=== PATIENT | female | born 1980 | race Caucasian/White ===

== ENCOUNTER 2021-12-01 08:36 | Outpatient (CLI) | payer MEDICARE, SELFPAY ==
--- NOTE | ~2021-12-01 | MM_ITS ---
EXAMINATION: MM screening mima BI w bartolo HISTORY: Screening TECHNIQUE: Craniocaudal and mediolateral oblique 3-D tomosynthesis images were obtained and synthetic 2-D images were generated. CAD analysis was submitted and interpreted. COMPARISON: No prior mammogram is available for comparison at this institution. BREAST PARENCHYMAL COMPOSITION: There are scattered areas of fibroglandular density. FINDINGS: There is no evidence of suspicious mass, calcification, or architectural distortion to sugg est malignancy in either breast. There has been no suspicious interval change. IMPRESSION: 1. No mammographic evidence of malignancy. 2. Recommend routine screening mammography in one year. BI-RADS Category 1: Negative Reviewed, dictated and finalized at location A. R GIFTS OFFICER
== END 2021-12-01 08:37 | disposition home or self-care (01) ==
LOC: ANHIMG 08:38
PROVIDERS: PCP Family Medicine; Visit Provider Obstetrics & Gynecology
DX: Z12.31 Encounter for screening mammogram for malignant neoplasm of breast (principal)
CPT/HCPCS: 77063; 77067

== ENCOUNTER 2022-05-24 20:37 | Emergency (ER) | payer MEDICARE, SELFPAY ==
[2022-05-24 21:06] VITALS: BP 125/79; PULSE 74; RESP 18; TEMP 36.9; O2SAT 96
--- NOTE | 2022-05-24 22:54 | PC.NURSE ---
Patient presented to the triage desk and notified this RN that she no longer wanted to be seen by a provider in the ED. She stated that she would she her PCP in the morning. Patient encouraged to stay but declined.
== END 2022-05-24 22:54 | disposition left against medical advice (07) ==
LOC: ANHED 23:17
PROVIDERS: PCP Family Medicine
DX: R51.9 Headache, unspecified (principal)
CPT/HCPCS: 99199

== ENCOUNTER 2023-09-03 09:38 | Emergency (ER) | payer MEDICARE, SELFPAY ==
[2023-09-03 09:50] VITALS: BP 109/70; PULSE 70; RESP 18; TEMP 36.5; O2SAT 98
[2023-09-03 09:52] VITALS: BP 109/70; PULSE 70; RESP 18; TEMP 36.5; O2SAT 98
--- NOTE | 2023-09-03 10:13 | ED.FEMALEGU ---
HPI - Female Genitourinary General Chief complaint: Urogenital-Female Stated complaint: uti symptoms Time Seen by Provider: 09/03/23 10:00 Source: patient Mode of arrival: ambulatory Limitations: no limitations History of Present Illness HPI Narrative: 43-year-old female Presents with complaint of dysuria, bladder pressure, urgency, decreased output since yesterday. Taking [id number] azo and ibuprofen to treat symptoms. Afebrile. Denies nausea vomiting. All systems reviewed and negative except as noted above. Related Data Home Medications Medication Instructions Recorded Confirmed aripiprazole 5 mg tablet mg 09/03/23 buspirone 5 mg tablet mg 09/03/23 escitalopram oxalate 20 mg tablet mg 09/03/23 gabapentin 400 mg capsule mg 09/03/23 trazodone 100 mg tablet mg 09/03/23 Allergies Allergy/AdvReac Type Severity Reaction Status Date / Time lamotrigine Allergy Severe Unknown Verified 04/19/23 08:10 clindamycin Allergy Unknown Unknown Verified 09/03/23 09:50 diphenhydramine Allergy Unknown Unknown Verified 09/03/23 09:50 Sulfa (Sulfonamide Allergy Unknown Unknown Verified 09/03/23 09:50 Antibiotics) Review of Systems Review of Systems: CONSTITUTIONAL: Denies fever, chills, or sweats. EYES: Denies visual changes, redness, or discharge. ENT: Denies rhinorrhea, congestion, sore throat, or otalgia. CARDIOVASCULAR: Denies chest pain, palpitations, or edema. RESPIRATORY: Denies cough or dyspnea. GASTROINTESTINAL: Denies abdominal pain, nausea, vomiting, or diarrhea. GENITOURINARY: reports dysuria, pelvic pressure, frequency. Denies hematuria. SKIN: Denies rash or itching. MUSCULOSKELETAL: Denies back pain, joint pain, or myalgia. NEUROLOGIC: Denies headache, numbness, or weakness. PSYCHIATRIC: Denies anxiety or depression. All other systems reviewed are negative, except as documented in HPI. [facility] Past Medical History Medical History Anxiety BMI 26.0-26.9,adult BMI 28.0-28.9,adult BMI 30.0-30.9,adult Depression Ectopic Migraine Surgical History Surgical History Previous back surgery January 2019 Family History Family History Father No problems noted. Mother Hypertension Family history of diabetes mellitus in first degree relative Grandparent Family history of malignant neoplasm of breast Sibling No problems noted. Social History Social History Smoking packs per day: 1 Smoking cigarettes per day: 20.0 Years smoked: 30 Smoking pack-years: 30.00 Smoking status: Current every day smoker Tobacco type: cigarettes Second hand tobacco smoke exposure: Yes Alcohol intake: former Drinks per week: 0 Alcohol use details: rarely Substance use: current Substance use type: marijuana Lack of Transportation: No Lack of Food: Never True Current Housing: I Have Housing Concerned About Future Housing: No Difficulty Paying Gas/Electric Bills: No Difficulty Paying for Meds: No Currently Unemployed: No Education: High School Diploma/GED Difficulty w/ Childcare or Family Care: No Living arrangements: with family Occupation/Education: occupation 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 There is no relevant family history pertinent to the presenting complaint. Exam Narrative: GENERAL: This is a well-nourished, well-developed patient, in no apparent distress. HEAD: normocephalic, atraum
== END 2023-09-03 10:08 | disposition home or self-care (01) ==
PROVIDERS: Emergency Provider Nurse Practitioner Family; PCP Family Medicine
DX: N39.0 Urinary tract infection, site not specified (principal); F17.210 Nicotine dependence, cigarettes, uncomplicated; F12.90 Cannabis use, unspecified, uncomplicated
CPT/HCPCS: 81003; 87086; 87088; 99213; G0463

== ENCOUNTER 2023-11-03 08:32 | Emergency (ER) | payer MEDICARE, SELFPAY ==
[2023-11-03 08:41] VITALS: BP 105/73; PULSE 73; RESP 20; TEMP 36.1; O2SAT 100
--- NOTE | 2023-11-03 08:48 | ED.BACK ---
HPI - Back Pain/Injury General Chief Complaint: Back Pain/Injury Stated Complaint: back pain Time Seen by Provider: 11/03/23 08:49 Source: patient Mode of arrival: ambulatory Limitations: no limitations History of Present Illness HPI Narrative: 43-year-old female presents with low back pain for 2 days. Denies injury. Reports history of chronic back pain. 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 States low back is tight with radiation to bilateral hips. Taking ibuprofen and Tylenol without relief pain. Ambulatory with steady gait. No numbness, tingling or weakness to lower extremities. No loss of bowel or bladder. All systems reviewed and negative except as noted above. Related Data Home Medications Medication Instructions Recorded Confirmed aripiprazole 5 mg tablet 5 mg PO HS 09/03/23 11/03/23 buspirone 5 mg tablet 5 mg PO BID 09/03/23 11/03/23 escitalopram oxalate 20 mg tablet 20 mg PO DAILY 09/03/23 11/03/23 gabapentin 400 mg capsule 400 mg PO TID 09/03/23 11/03/23 trazodone 100 mg tablet 100 mg PO DAILY 09/03/23 11/03/23 Allergies Allergy/AdvReac Type Severity Reaction Status Date / Time clindamycin AdvReac Intermediate Gastrointestinal Verified 11/03/23 08:49 Upset lamotrigine AdvReac Intermediate Gastrointestinal Verified 11/03/23 08:49 Upset Sulfa (Sulfonamide AdvReac Intermediate Gastrointestinal Verified 11/03/23 08:49 Antibiotics) Upset diphenhydramine AdvReac Mild Rash Verified 11/03/23 08:49 Review of Systems Review of Systems: CONSTITUTIONAL: Denies fever, chills, or sweats. EYES: Denies visual changes, redness, or discharge. ENT: Denies rhinorrhea, congestion, sore throat, or otalgia. CARDIOVASCULAR: Denies chest pain, palpitations, or edema. RESPIRATORY: Denies cough or dyspnea. GASTROINTESTINAL: Denies abdominal pain, nausea, vomiting, or diarrhea. GENITOURINARY: Denies dysuria or hematuria. SKIN: Denies rash or itching. MUSCULOSKELETAL: Reports low back pain. denies joint pain, or myalgia. NEUROLOGIC: Denies headache, numbness, or weakness. PSYCHIATRIC: Denies anxiety or depression. All other systems reviewed are negative, except as documented in HPI. [facility] Past Medical History Medical History Anxiety BMI 26.0-26.9,adult BMI 28.0-28.9,adult BMI 30.0-30.9,adult Depression Ectopic Migraine Surgical History Surgical History Previous back surgery January 2019 Family History Family History Father No problems noted. Mother Hypertension Family history of diabetes mellitus in first degree relative Grandparent Family history of malignant neoplasm of breast Sibling No problems noted. Social History Social History Smoking packs per day: 1 Smoking cigarettes per day: 20.0 Years smoked: 30 Smoking pack-years: 30.00 Smoking status: Current every day smoker Tobacco type: cigarettes Second hand tobacco smoke exposure: Yes Alcohol intake: former Drinks per week: 0 Alcohol use details: rarely Substance use: current Substance use type: marijuana Lack of Transportation: No Lack of Food: Never True Current Housing: I Have Housing Concerned About Future Housing: No Difficulty Paying Gas/Electric Bills: No Difficulty Paying for Meds: No Currently Unemployed: No Education: High School Diploma/GED Difficulty w/ Childcare or Family Care: No Living arrangements: with family Occupation/Education: occupation 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
== END 2023-11-03 08:58 | disposition home or self-care (01) ==
PROVIDERS: Emergency Provider Nurse Practitioner Family; PCP Family Medicine
DX: S39.012A Strain of muscle, fascia and tendon of lower back, initial encounter (principal); X58.XXXA Exposure to other specified factors, initial encounter; Y99.0 Civilian activity done for income or pay; F17.210 Nicotine dependence, cigarettes, uncomplicated; F12.90 Cannabis use, unspecified, uncomplicated; F41.9 Anxiety disorder, unspecified; F32.A Depression, unspecified
CPT/HCPCS: 99212; G0463

== ENCOUNTER 2024-05-20 16:12 | Outpatient (CLI) | payer MEDICARE, SELFPAY ==
--- NOTE | ~2024-05-20 | XR_ITS ---
EXAM: XR lumbar spine 2-3V DATE: 05/20/2024 16:29 HISTORY: LOW BACK PAIN X 5 YEARS; NO INJURY . COMPARISON: 09/19/2018. FINDINGS: 5 nonrib-bearing lumbar-type vertebral bodies. Pedicles intact. Normal vertebral body alig nment. Vertebral body heights preserved. Severe disc space narrowing, vacuum phenomenon, and moderate marginal osteophytosis at L4-5. Mild disc space narrowing and marginal osteophytosis at L5-S1. Mild L3-4 and L4-5 and moderate L5-S1 facet sclerosis and hypertrophy. No fracture or dislocation. IMPRESSION: Lower lumbar degenerative disc disease, severe at L4-5. Multilevel lower lumbar facet art hropathy. Reviewed, dictated and finalized at location K. IMPRESSION: Lower lumbar degenerative disc disease, severe at L4-5. Multilevel lower lumbar facet arthropathy.
== END 2024-05-20 16:13 | disposition home or self-care (01) ==
PROVIDERS: PCP Family Medicine; Visit Provider Nurse Practitioner Adult Health
DX: M51.36 Other intervertebral disc degeneration, lumbar region (principal); M47.896 Other spondylosis, lumbar region
CPT/HCPCS: 72100

== ENCOUNTER 2024-09-06 09:18 | Outpatient (CLI) | payer OTHER, MEDICARE, SELFPAY ==
--- NOTE | ~2024-09-06 | US_ITS ---
EXAMINATION: US renal BI DATE: 09/06/2024 10:20 INDICATION: Incontinence. Pelvic and perineal pain. TECHNIQUE: Multiple ultrasound grayscale images of the kidneys were obtained. COMPARISON: None. FINDINGS: The right kidney measures 11.2 x 4.7 x 5.2 cm. The left kidney measures 10.6 x 5.3 x 5.3 cm. The kidn eys demonstrate normal echogenicity. There is no hydronephrosis in either kidney. No stones identifi ed. The bladder is normal. IMPRESSION: 1. Normal kidneys without hydronephrosis. Reviewed, dictated and finalized at location A.
== END 2024-09-06 09:19 | disposition home or self-care (01) ==
LOC: ANHIMG 09:25
PROVIDERS: PCP Family Medicine; Visit Provider Nurse Practitioner Adult Health
DX: R10.2 Pelvic and perineal pain (principal); N39.41 Urge incontinence
CPT/HCPCS: 76775

== ENCOUNTER 2025-02-03 12:25 | Outpatient (CLI) | payer MEDICARE, SELFPAY ==
--- NOTE | 2025-02-03 12:30 | ECG_ITS ---
Test Date: 2025-02-03 12:54:27 Measurements Intervals [place] Rate: 100 P: 64 OK: 141 QRS: 30 QRSD: 90 T: 44 QT: 355 QTc: 459 Interpretive Statements SINUS TACHYCARDIA LOW QRS VOLTAGE IN PRECORDIAL LEADS [QRS DEFLECTION < 1.0 mV IN CHEST LEADS] WARNING: DATA QUALITY MAY AFFECT INTERPRETATION No previous ECG available for comparison Electronically Signed On 02-04-2025 16:36:58 CDT by Robert Javier M.D.
--- OUTSIDE RECORDS SUMMARY | 2025-02-03 14:46 | XMS_ITS ---
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 feelings related to the stressful experience?: 1 = A little bit 7 Avoiding external reminder s of the stressful experience (for example, people, places, conversations, activities, objects, or situations)?: 0 = Not at all 8 Trouble remembering import ant parts of the stressful experience?: 0 = Not at all 9 Having strong negative bel iefs about yourself, other people, or the world (for example, having thoughts such as: I am bad, there is something seriously wrong with me, no one can be trusted, the world is completely dangerous)?: 0 = Not at all 10 Blaming yourself or someo ne else for the stressful experience or what happened after it?: 2 = Moderately 11 Having strong negative fe elings such as fear, horror, anger, guilt, or shame?: 0 = Not at all 12 Loss of interest in activities that y ou used to enjoy?: 2 = Moderately 13 Feeling distant or cut off from other people?: 2 = Moderately 14 Trouble experiencing posi tive feelings (for example, being unable to feel happiness or have loving feelings for people close to you)?: 3 = Quite a bit 15 Irritable behavior, angry outbursts, or acting aggressively?: 0 = Not at all 16 Taking too many risks or doing things that could cause you harm?: 0 = Not at all 17 Being superalert or watchful or on guard?: 0 = Not at all 18 Feeling jumpy or easily startled?: 1 = A little bit 19 Having difficulty concentrating?: 3 = Quite a bit 20 Trouble falling or staying asleep?: 3 = Quite a bit Total Score 25 Interpretation Scores lower than 31 -33 may indicate the patient either has subthreshold symptoms of PTSD or does not meet criteria for PTSD,: Yes Examination Category Sub-Category Detail Notes Category Not es General Examination Mental Status Examination: Patient exhibits symptoms of depression and anxiety, reporting increased apathy and lack of motivation. Describes feeling on edge, with difficulty experiencing happiness, and functioning on a day-to-day basis primarily to fulfill obligations. Reports increased work hours, including 10-12 hour shifts, leading to physical exhaustion, with no significant improvement in mood. Patient also reports symptoms suggestive of ADHD, including distractibility, difficulty organizing, and misplacing items. Experiences anxiety related to deviations from routine or expectations, particularly when unable to maintain order due to depressive symptoms. Patient continues to experience moderate PTSD symptoms, including flashbacks, avoidance behaviors, and heightened anxiety in response to reminders of past trauma, with almost full panic attacks occurring twice in the last week. Reports waking up several times a night due to disturbing dreams, contributing to fatigue. Vital Signs: review the notes for vitals Physical Examination: Patient appears tired but is cooperative and oriented. Reports symptoms consistent with anxiety and depressive disorders, including lack of motivation and apathy. Symptoms of depression, anxiety, possible ADHD, and PTSD are noted. Diagnostic Test Results and Labs: No relevant diagnostic test results or labs mentioned in the provided text.
--- OUTSIDE RECORDS SUMMARY | 2025-02-03 14:47 | XMS_ITS | Encounter Summary ---
Author Organization [facility] Healthcare Address [address] [place] [address] Care Team Providers Care Fur Matcher Name Role Phone Hamlet Dougherty MD Primary Care Provider [phone] Encounter Details Date Type Department Care Team (Late st Contact Info) Description 10/24/2020 Therapy [facility] [address] [place] [address] Estrada Coffman MD [address] [facility] [address] [place] [address] Severe episode of recurrent major depressive disorder, without psychotic features (HCC) (Primary Dx) Social History Tobacco Use Types Packs/Day Years Used Date Smoking Tobacco: Every Day Cigarettes 1 29.2 Started: 1995 Smokeless Tobacco: Never Alcohol Use Standard Drinks/Week Comments Yes 0 (1 standard drink = 0.6 oz pur e alcohol) RARE Comments No Sex and Gender Information Value Date Recorded Sex Assigned at Not on file Legal Sex Female 7:59 AM CDT Gender Identity Not on file Sexual Orientation Not on file documented as of this encounter Plan of Treatment Not on file documented as of this encounter Visit Diagnoses Diagnosis Severe episode of recurrent major depressive disorder, without psychotic features (HCC)- Primary documented in this encounter Care Teams Fur Matcher Relationship Specialty Start Date End Date Hamlet Dougherty MD PCP - General Family Medicine 11/15/18 documented as of this encounter
--- OUTSIDE RECORDS SUMMARY | 2025-02-03 14:47 | XMS_ITS | Clinical Summary ---
Author Organization [facility] Address [address] [place] [id number] Care Team Providers Care Manual Tester Name Role Phone Hamlet Dougherty MD Primary Care Provider [phone] Allergies Active Allergy Reactions Criticality Noted Date Comments Diphenhydramine Rash Medium 01/30/2019 Clindamycin Diarrhea,Stomach upset Low 01/30/2019 Lamotrigine Rash,Other (See comments) Medium 01/30/2019 PEELING SKIN Morphine Dizziness,Nausea & Vomiting Low 01/30/2019 Sulfa (Sulfonamide Antibiotics) Diarrhea,Stomach upset Low 01/30/2019 Midazolam Dizziness,Nausea & Vomiting Low 01/30/2019 Sertraline Other (See comments) Low 01/30/2019 INDUCES MAJOR DEPRESSION Medications ergocalciferol (VITAMIN D) 50,000 unit capsuleIndicati ons:Vitamin D Deficiency,take n on Saturdays Take 50,000 Units by mouth once a week 1 8 Active ARIPiprazole (ABILIFY) 2 mg tabletIndicatio ns:Depression Treatment Adjunct Take 2 mg by mouth nightly Active mirtazapine (REMERON) 30 mg tabletIndicatio ns:major depressive disorder Take 15 mg by mouth nightly Active ALPRAZolam (XANAX) 0.5 mg tablet Take 0.5 mg by mouth 2 (two) times a day Active escitalopram (LEXAPRO) 20 mg tablet Take 20 mg by mouth daily 1 Active Spravato 56 mg (28 mg x 2) spray,non-aeros ol As directed 1 Active Spravato 84 mg (28 mg x 3) spray,non-aeros ol Administer 84 mg into one nostril every 30 (thirty) days Active Active Problems Problem Noted Date Diagnosed Date Episode of recurrent major depressive disorder 1 Lumbar disc herniation 01/22/2019 Overview (01/22/2019): Added automatically from request for surgery [id number] Spinal stenosis of lumbar region 01/18/2019 Immunizations Immunization Administration Dates Next Due Tdap 2023 Surgical History Surgery Date Site/Laterality Comments MICRODISCECTOMY LUMBAR 01/18/2019 - 02/17/2019 OTHER SURGICAL HISTORY ECT SALPINGECTOMY Medical History Medical History Date Comments Lumbar disc herniation with radiculopathy Lumbar stenosis Lumbar stenosis without neurogenic claudication Cauda equina syndrome (HCC) diana y PONV (postoperative nausea and vomiting) Delayed emergence from general anesthesia pt denies Episode of recurrent major depressive disorder 1 Family History Medical History Relation Name Comments AVR Father Heart attack Mother Anesthesia problems Neg Hx Relation Name Status Comments Father Mother Social History Tobacco Use Types Packs/Day Years Used Date Smoking Tobacco: Every Day Cigarettes 1 29.2 Started: 1995 Smokeless Tobacco: Never Alcohol Use Standard Drinks/Week Comments Yes 0 (1 standard drink = 0.6 oz pur e alcohol) monthly or less Personal Safety Answer Date Recorded Have you ever been in or are you currently in a harmful physical or emotional relationship or is someone making you feel afraid or unsafe? Denies 2023 Comments No Sex and Gender Information Value Date Recorded Sex Assigned at Not on file Legal Sex Female 7:59 AM CDT Gender Identity Not on file Sexual Orientation Not on file Obstetrics History Last Filed Vital Signs Vital Sign Reading Time Taken Comments Blood Pressure 121/77 2023 3:20 PM CDT Pulse 80 2023 3:20 PM CDT Temperature 36.8 C (98.2 F) 2023 3:20 PM CDT Respiratory Rate 18 2023 3:20 PM CDT Oxygen Saturation 99% 2023 3:20 PM CDT Inhaled Oxygen Concentration - - Weight 69 kg (152 lb 1.9 oz) 2023 3:20 PM CDT Height 157.5 cm (5' 2 ) 2023 3:20 PM CDT Body Mass Index 27.82 2023 3:20 PM CDT Plan of Treatment Health Maintenance Due Date Last Done Comments Breast Cancer Screening-Mammogram 1980 Cervical Cancer Screening 1980 Colon Cancer Screening-Colonoscopy 1980 Depression Screening 1978 Hepatitis B Screening 1996 Regular Well Visit/Exam 18-64 1996 Pneumococcal vaccine <65 (1 of 2 - PCV) 1997 Covid-19 Vaccine (3 - 2023-2 5 season) 2024 10/18/2021, 09/27/2021 Influenza Vaccine (#1) 2024 DTaP/Tdap/Td Vaccine (3 - Td or Tdap) 2033 2023, 04/01/2021 Hepatitis C Screening Completed 02/12/2019 , 02/12/2019, 02/12/2019 HPV Vaccines Aged Out No longer eligi ble based on patient's age to complete this topic Procedures Procedure Name Priority Date/Time Associated Diagnosis Comments HEPATITIS PANEL, ACUTE Routine 02/12/2019 8:09 PM CDT from Last 3 Months or Most Recently Relevant to Health Maintenance Results * Hepatitis panel, acute (02/12/2019 8:09 PM CDT) Hep A IgM Nonreactive Nonreactive [facility] Comment: Interpretive Data If test is reported as GRAYZONE, new sample should be drawn in two weeks for testing. Current interpretive data was last revised on 2016. Hep B core IgM Nonreactive Nonreactive [facility] Comment: Interpretive Data If test is reported as GRAYZONE, new sample should be drawn for testing. Current interpretive data was last revised on 2016. Hep C Ab Nonreactive Nonreactive [facility] Comment: Interpretive Data Positive results should be confirmed by a molecular method. If positive, a second separately collected sample should be submitted for Hepatitis C Virus (HCV) RNA Detection and Quantitation by Real-Time Reverse Fertilizer Applicator-PCR (RT-PCR). Current interpretive data was last revised on 2016. HepBsAg Nonreactive Nonreactive [facility] Blood specimen (specimen) 02/12/2019 8:09 PM CDT 02/12/2019 8:50 PM CDT Narrative [facility] - 02/13/2019 11:45 AM CDT Caridad Ramey MD LAB MICROBIOLOGY - GENERAL O RDERABLES Edited Result - Final [facility] Department [place] [address] from Last 3 Months or Most Recently Relevant to Health Maintenance [facility]POS [facility] HMO [employer]ARE HMO Advance Directives For more information, please contact: [phone] Documents on File Type Date Recorded Patient Medical Case Manager Expl anation ADVANCE DIRECTIVE 02/12/2019 11:16 AM * Full Code (Latest Code Status on File) Date Activated Date Inactivated Comments 04/01/2021 6:23 AM 04/02/2021 4:54 AM * Full Code Date Activated Date Inactivated Comments 03/25/2021 5:53 AM 03/26/2021 4:57 AM * Full Code Date Activated Date Inactivated Comments 03/22/2021 6:04 AM 03/23/2021 4:59 AM * Full Code Date Activated Date Inactivated Comments 03/18/2021 6:06 AM 03/19/2021 5:04 AM * Full Code Date Activated Date Inactivated Comments 03/15/2021 6:08 AM 03/16/2021 4:56 AM Care Teams Manual Tester Relationship Specialty Start Date End Date Hamlet Dougherty MD PCP - General Family Medicine 11/15/18
--- OUTSIDE RECORDS SUMMARY | 2025-02-03 14:47 | XMS_ITS ---
Author Organization [facility] [employer] [facility] Address [address] [place] [address] [address] [facility] [address] [place] [address] Care Team Providers Care Plant Biology Professor Name Role Phone Ladonna LEO, Hamlet Primary Care Provider UnavailDonald Horner Unavailable [phone] Social History Sex Assigned At : Social History Observation Description Sex Assigned At Female Encounters Encounter Location Date Provider Diagnosis [facility] [address] [address] 01/21/2025 Donald Kc Plan Of Treatment Next Appt Details Provider Name:Donald Kc , 02/10/2025 02:00:00 PM, [address] [place] [address], [address], [address], Provider Name:Donald Kc , 03/03/2025 01:30:00 PM, [address] [place] [address], [address], [address], Progress Notes * STORM MELARA LDOB:1980 (44 yo F)Acc No.[id number]:01/21/2025 Patient: BRODY MAIERJENNA Dorman :1980 A ge:44 Y S ex:Female Address:[address] [place] [address], [id number] * * Date:
--- OUTSIDE RECORDS SUMMARY | 2025-02-03 14:47 | XMS_ITS | Data Portability ---
Author Organization [facility] Address [address] [place] [address] Care Team Providers Care Configuration Management Analyst Name Role Phone UMA MORA Primary Care Provider [phone] Assessment Encounter Date Assessment Date Assessment LastModified by Organization Details LastModified Time 09/30/2024 09/30/2024 Annual gynecological exam performed. Patient will come back in a year unless there are new symptoms. Not available 09/30/2024 14:28:32 Plan of Treatment Reminders Order Date Submit Date Provider Last Modified By Organization Details Last Modified Time Details Appointments SURG Salpingec quiana 2024 10:00A Jose Antonio STALEY MD Not available Not available Not available SURG POST OP 2024 01:15P Jose Antonio STALEY MD Not available Not available Not available Lab None recorded. Referral None recorded. Procedures None recorded. Surgeries laparosco pic ovarian cystectom y (SURG) [address], [facility] [address], [address], 01/03/2025 17:00:43 salpingec quiana, laparosco pic (SURG) [address], [facility] [address], [address], 12/25/2024 09:55:22 hysterosc opy, with endometri al ablation (SURG) [address], [address] [place] [address], [address], 12/25/2024 09:55:05 Imaging US, pelvis 2024 025 [email or web address] [place] [facility] [address], [place], [address], 12/02/2024 18:54:09 US, transvagi nal 2024 025 [email or web address] [place], [place], [address], 12/02/2024 18:54:09 US, pelvis 2023 024 [email or web address] [place] [address], [place], [address], 10/07/2024 19:44:28 US, transvagi nal 2023 024 [email or web address] [place], [address], [place], [address], 10/07/2024 19:44:28 Medication Orders None recorded. Patient TargetsNo targets recorded. Patient InstructionsNo instructions recorded. Reason for Referral None Reported. Results Created Date Observation Date Name Description Value Unit Range Abnormal Flag Note LastModifiedBy Organization Detail LastModifiedTime 10/07/20 24 10/07/2024 , joshua newberry No observ ation record ed. [email or web address] [place] [address], [place], [address], 10/07/2024 18:05:03 10/07/20 24 10/07/2024 US, trans vagin al No observ ation record ed. [email or web address] [place] [address], [place], [address], 10/07/2024 18:05:12 10/07/20 24 10/07/2024 US, pelvi s No observ ation record ed. [email or web address] [address] [address], [place], [address], 10/07/2024 19:49:03 12/02/19 25 12/02/2024 US, pelvi s No observ ation record ed. [facility] [address], [place], [address], 12/02/2024 18:03:42 12/02/19 25 12/02/2024 US, trans vagin al No observ ation record ed. [facility] [address], [place], [address], 12/02/2024 18:03:53 12/02/19 25 12/02/2024 US, pelvi s No observ ation record ed. [address], [place], [address], 12/03/2024 15:35:15 Result Notes None recorded. Procedures Surgical History Date Name Laterality Status Provider Name and Address Organization Details Recorded Time 4 Date of Last Pap Smear completed [facility] 10/28/2024 14:35:26 2 Date of Last Mammogram completed [facility] 09/30/2024 14:30:21 9 procedure on back completed [facility] 09/30/2024 14:36:31 4 fallopian tube excision completed [facility] 09/30/2024 14:36:08 Imaging Results Imaging Date Name Status LastModified by Organization Details LastModified Time 10/07/2024 US, pelvis completed [email or web address] [place] [address], [place], [address], 10/07/2024 18:05:03 10/07/2024 US, transvaginal completed [email or web address] [place] [address], [place], [address], 10/07/2024 18:05:12 10/07/2024 US, pelvis completed [email or web address] [address], [place], [address], 10/07/2024 19:49:03 12/02/2024 US, pelvis completed [email or web address] [place] [address], [place], [address], 12/02/2024 18:03:42 12/02/2024 US, transvaginal completed [email or web address] [place] [address], [place], [address], 12/02/2024 18:03:53 12/02/2024 US, pelvis completed [address], [place], [address], 12/03/2024 15:35:15 Procedure Notes None recorded. Medical Equipment None Reported. Allergies Allergen ID Allergen Name Allergen Category Reaction Reaction Severity Criticality Documentation Date Start Date Code Code System Note Provider Name and Address Organization Details Recorded Time 20983 dexbromph eniramine / pseudoeph edrine medicatio n rash moderate Not available 09/30/2024 48752 4 RxNorm Claudia Whitman [facility] 14:30:04 Medications Name Sig Start Date Stop Date Status Note LastModified by Organization Details LastModified Time cyclobenzap rine 10 mg tablet TAKE 1 TABLET (10 MG) ORALLY THREE TIMES A DAY NEEDED FOR MUSCLE SPASM active Not Available Not Available No t Available amoxicillin 500 mg capsule TAKE 1 CAPSULE BY MOUTH EVERY 8 HOURS 09/30 completed Not Available Not Available Not Available buspirone 5 mg tablet TAKE 1 TABLET BY MOUTH THREE TIMES A DAY FOR 30 DAYS active Not Available Not Available No t Available prednisone 10 mg tablet 10 MG ORALLY THREE TIMES A DAY 3 TABLETS A DAY FOR 5 DAYS. 09/30 completed Not Available Not Available Not Available doxycycline hyclate 100 mg capsule TAKE 2 ON DAY 1, THEN TAKE 1 EVERY DAY 09/30 completed Not Available Not Available Not Available gabapentin 400 mg capsule TAKE 1 CAPSULE BY MOUTH THREE TIMES A DAY active Not Available Not Available No t Available meloxicam 7.5 mg tablet TAKE 1 TABLET BY MOUTH EVERY DAY active Not Available Not Available No t Available trazodone 100 mg tablet TAKE 1/2 TAB TABLET BY MOUTH EVERYDAY AT BEDTIME 09/30 completed Not Available Not Available Not Available nitrofurant oin macrocrysta l 100 mg capsule 100 MG ORALLY EVERY 12 HOURS MUST ADMINISTE R WITH A MEAL/FOOD 09/30 completed Not Available Not Available Not Available escitalopra m 20 mg tablet TAKE 1 TABLET BY MOUTH EVERY DAY FOR 90 DAYS active Not Available Not Available No t Available aripiprazol e 5 mg tablet TAKE 1 TABLET BY MOUTH EVERY DAY FOR 90 DAYS active Not Available Not Available No t Available cyclobenzap rine 09/30 completed Not Available Not Available Not Available gabapentin 09/30 completed Not Available Not Available Not Available Uro-MP 118 mg-10 mg-40.8 mg-36 mg capsule TAKE 1 CAPSULE BY MOUTH FOUR TIMES A DAY. TAKE WITH PLENTY OF FLUIDS active Not Available Not Available No t Available meloxicam submicroniz ed 10 mg capsule 09/30 completed Not Available Not Available Not Available Acid Teletype Operator (omeprazole ) 09/30 completed Not Available Not Available Not Available Gemtesa 75 mg tablet TAKE 1 TABLET BY MOUTH EVERY DAY active Not Available Not Available No t Available Vitals Date Recorded Body height Body mass index (BMI) Body weight Systolic blood pressure Diastolic blood pressure Provider Name and Address Organization Details Last Updated DateTime 09/30/2024 157.48 cm 30.9 kg/m2 72196.11 g 120 mm[Hg] 55 mm[Hg] Claudia Whitman [facility] 4 14:29:58 Date Recorded Body height Body mass index (BMI) Body weight Systolic blood pressure Diastolic blood pressure Provider Name and Address Organization Details Last Updated DateTime 10/28/2024 157.48 cm 30.7 kg/m2 75636.52 g 112 mm[Hg] 77 mm[Hg] Claudia Whitman [facility] 4 14:34:47 Date Recorded Body height Body mass index (BMI) Body weight Systolic blood pressure Diastolic blood pressure Provider Name and Address Organization Details Last Updated DateTime 12/20/2024 157.48 cm 30.5 kg/m2 98385.93 g 120 mm[Hg] 82 mm[Hg] Claudia Whitman [facility] 5 10:08:27 Social History Question Answer Notes LastModified by Organizat ion Details LastModified Time Do You Have An Advance Directive? No Information n ot available 09/30/2024 What Is Your Level Of Alcohol Consumption? None Information not available 09/30/2024 How Many Years Have You Consumed Alcohol? 33 Information not available 09/30/2024 Are You Blind Or Do You Have Difficulty Seeing? No Information not available 09/30/2024 What Is Your Level Of Caffeine Consumption? Moderate Information not available 09/30/2024 How Much Tobacco Do You Chew? None Information not available 09/30/2024 In The 14 Days Before Symptom Onset, Have You Had Close Contact With A Laboratory-confirme d COVID-19 While That Case Was Ill? No Information n ot available 09/30/2024 In The 14 Days Before Symptom Onset, Have You Had Close Contact With A Person Who Is Under Investigation For COVID-19 While That Person Was Ill? No Information not available 09/30/2024 Have You Been To An Area Known To Be High Risk For COVID-19? No Information not available 09/30/2024 Are You Deaf Or Do You Have Serious Difficulty Hearing? No Information not available 09/30/2024 What Type Of Diet Are You Following? REGULAR Information n ot available 09/30/2024 What Is The Highest Grade Or Level Of School You Have Completed Or The Highest Degree You Have Received? 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 No Information not available 09/30/2024 Do You Use Protection During Sex? No Information not available 09/30/2024 Do You Use Your Seat Belt Or Car Seat Routinely? Yes Information not available 09/30/2024 Do You Have Smoke And Carbon Monoxide Detectors In Your Home? Yes Information not available 09/30/2024 At What Age Did You Start Smoking Tobacco? 11 Information not available 09/30/2024 How Much Tobacco Do You Smoke? 1 PPD Information not available 09/30/2024 Do You Feel Stressed (tense, Restless, Nervous, Or Anxious, Or Unable To Sleep At Night)? [id number] Information not available 09/30/2024 Do You Use Any Illicit Or Recreational Drugs? Yes Information not available 09/30/2024 Do You Use Sunscreen Routinely? No Information not available 09/30/2024 How Many Years Have You Smoked Tobacco? 33 Information not available 09/30/2024 Have You Used IV Drugs? No Information not available 09/30/2024 Sex: Unknown Functional Status Question Answer Note LastModified by Organizat ion Details LastModified Time Are you able to walk? YESWOREST Information not available 09/30/2024 What is your exercise level? Occasional Information not available 09/30/2024 Mental Status None recorded. Family History Relationship Description Onset Age of this Age Resolved Age Notes LastModified by Organization Details LastModified Time Mother Depressive disorder Not available 2023 14:30:09 Maternal Grandfather Depressive disorder Not available 2023 14:30:09 Medical History Condition Response Allergies (Food, seasonal, environmental ) N Other N Breast Cancer N Drug/Latex Allergies/Reactions N Blood Transfusion N Lung Disease N Dermatologic Disorders N Defects or Inherited Disease N Breast Problem N Gestational Diabetes N Hematologic disorders N Anesthesia Complications N History of STI N Deep Vein Thrombosis N Polycystic ovary syndrome N Anxiety Disorder Y Autoimmune disease N Arthritis N Polyps N Infertility N History of abnormal pap N Acid Reflux (GERD) N Cancer N Varicosities N Stroke N Neurologic/Epilepsy N Endometriosis N High Cholesterol N Fibromyalgia N Headaches N Kidney Disease N Heart Problems N Kidney or Bladder Problems N Thyroid Problems N GI Problems Y Eating Disorder N Anemia N Art (IVF or FET) N Psychiatric Illness N Ovarian Cancer N Diabetes N Pulmonary (TB, Asthma) N Hepatitis/Liver Disease N No Past Medical History N Eczema N Urinary Tract Infection N Abuse/Domestic Violence N Asthma N Trauma/Violence N Depression/ depression Y Heart Disease N Pre-Eclampsia N Hypertension N Osteoporosis N Thrombophilias N Gynecological History Statement/Question Response Date of Last Mammogram 06/20/2022 Flow Heavy Date of LMP 12/01/2024 N Was last menstrual period normal Y STIs/STDs N None Desired Control Method Ablation Abnormal Pap N On BCP's at Conception? N HPV Vaccine Y Duration of Flow (days) 5 Current Control Method None Age at First Child 21 Are cycles usually normal Y Frequency of Cycle (Q days) 28 Sexually Active? Y Menses Monthly Y Age of first menstrual cycle 10 Date of Last Pap Smear 09/30/2024 Sexual Problems? N LMP Definite N Obstetrics History GPAL:G 2 P 0 0 1 1 Type Value Living 1 Ectopics 1 Total 2 Past Encounters Encounter ID Performer Location Encounter Start Date Encounter Closed Date Diagnosis/Indication Diagnosis SNOMED-CT Code Diagnosis ICD10 Code Diagnosis Note [id number] Venkatesh Staley MD [place] [address] [address] 09/30/2024 14:02:20 09/30/2024 15:02:37 Gynecologic examination 53266339 Z01.419 Annual gynecologi aide exam performed. Patient will come back in a year unless there are new symptoms. Suggest Calcium with Vitamin D if not eating in diet. Patient advised to get annual flu shot. Recommend yearly physicals and preform monthly breast exams. Genetic testing is available for patients with family history of cancer. Engage in safe sexual practices, use condoms. Encouraged to have daily exercise. Avoid tobacco and illicit drugs, moderation of alcohol. If BMI greater than 25 dietary consult advised. If you have any questions please call or email. mammogram- ordered colon cancer screening -na DEXA scan-na Pap smear- today laboratory evaluation - done Severe menorrhagi a-to have pelvic ultrasound and to return [id number] Zulma Tiwari [place] [address] [address] 10/07/2024 16:06:22 10/07/2024 16:43:55 Menorrhagia 475691878 N92.0 [id number] Venkatesh Staley MD [place] [address],[place] [address] 10/28/2024 14:13:39 10/28/2024 15:25:01 Menorrhagia 786526591 N92.0 44-year-ol d female who presents for follow-up on menorrhagi a. She had an ultrasound that was reasonably normal. She does have a polyp within the cervix though. We agreed to follow-up on the polyp on ultrasound . She likewise has a ovarian cyst of 3 cm that will need follow-up. She will have ultrasound in 6 weeks. We talked about menorrhagi a. We talked about its treatment. We talked about medical treatments and surgical treatments . We agreed to a trial of Mirena IUD. She will return for Mirena IUD insertion. I spent more than 20 minutes on her care in total. [id number] [facility] [address],[place] [address] 12/02/2024 11:51:49 12/02/2024 12:36:10 Cyst of left ovary [id number] [id number] N83.292 N84.1 [id number] Venkatesh Staley MD [place] [address],[place] [address] 12/20/2024 09:57:27 12/20/2024 10:55:05 Menorrhagia 682866771 N92.0 this patient is a 44-year-ol d female with severe menorrhagi a. We have talked about treatment previously . Patient would like endometria l ablation. I believe that is the best treatment for her. Given her age and her health. She would need a right salpingect jonna. We talked about ultrasound today. I shared images with her. She has a left ovarian cyst that is mildly complex. We agreed to remove that at the time of the salpingect jonna. The patient understand s the procedure. The procedure was described to the patient in great detail. the patient also understand s the risks. The risks were also explained in detail. She understand s that injuries May occur during surgery. She understand s these injuries can result in hospitaliz ation, more surgery, and severe illness. She understand s there is risk of hemorrhage and infection. spent more than 40 minutes on the patient's care in total. Talked about ovarian cyst, we talked about surgical care. We talked about treatment for menorrhagi a. We discussed risk. We discussed multiple complex topics. Female sterilization 608 70939 Z30.2 Cyst of left ovary 57209 45198 3500251 N83.292 N84.1 Health Concerns Section Related Observation LastModified by Organization Detai ls LastModified Time None Recorded Concern Status LastModified by Organization Details LastModified Time None Recorded Advance Directives Directive N: Payers Encounter Date Sequence Insurance Name Policy Number Policy Martinez Covered Member ID Martinez Member ID Guarantor Name 09/30/2024 1 [employer] (MEDICARE REPLACEMENT /ADVANTAGE - PPO) Lotus Tracy [id number] Lotus Tracy 09/30/2024 1 [employer] [id number] Lotus Tracy [id number] Lotus Tracy 10/07/2024 1 [employer] (MEDICARE REPLACEMENT /ADVANTAGE - PPO) Lotus Tracy [id number] Lotus Tracy 10/07/2024 1 [employer] [id number] Lotus Tracy [id number] Lotus Tracy 10/28/2024 1 [employer] (MEDICARE REPLACEMENT /ADVANTAGE - PPO) Lotus Tracy [id number] Lotus Tracy 10/28/2024 1 [employer] [id number] Lotus Tracy [id number] Lotus Tracy 12/02/2024 1 [employer] (MEDICARE REPLACEMENT /ADVANTAGE - PPO) Lotus Tracy [id number] Lotus Tracy 12/20/2024 1 [employer] (MEDICARE REPLACEMENT /ADVANTAGE - PPO) Lotus Tracy [id number] Lotus Tracy Notes Date Note Type Note Provider Name and Address Organization Details Recorded Time 09/30/2024 text/html Annual GYNReported bypatient.History :no gynecologic complaints Menstrual cycle:Menorrhagia Urinary symptoms:No hematuria Vulva:No genital lesion Vagina:Normal vaginal discharge Breast:No breast pain; No breast lump; No nipple discharge Current Contraception:Bir th control not practiced Sexual complaints:No sexual complaints; No pain during intercourse Menopausal Symptoms:No menopausal symptoms; Normal vaginal lubrication Psychological symptoms:Depressi on;Anxiety; Txed Preventive measures:Encourag e self breast examination; Encourage regular exercise Venkatesh Staley MD [address], [place], [address], [facility] 09/30/2024 15:02:19 10/28/2024 text/html 44-year-old female who presents for follow-up on menorrhagia. She had an ultrasound that was reasonably normal. She does have a polyp within the cervix though. We agreed to follow-up on the polyp on ultrasound. She likewise has a ovarian cyst of 3 cm that will need follow-up. She will have ultrasound in 6 weeks. We talked about menorrhagia. We talked about its treatment. We talked about medical treatments and surgical treatments. We agreed to a trial of Mirena IUD. She will return for Mirena IUD insertion. I spent more than 20 minutes on her care in total. Venkatesh Staley MD [address], [place], [address], [facility] 10/28/2024 15:24:51 12/20/2024 text/html this patient is a 44-year-old female with severe menorrhagia. We have talked about treatment previously. Patient would like endometrial ablation. I believe that is the best treatment for her. Given her age and her health. She would need a right salpingectomy. We talked about ultrasound today. I shared images with her. She has a left ovarian cyst that is mildly complex. We agreed to remove that at the time of the salpingectomy. The patient understands the procedure. The procedure was described to the patient in great detail. the patient also understands the risks. The risks were also explained in detail. She understands that injuries May occur during surgery. She understands these injuries can result in hospitalization, more surgery, and severe illness. She understands there is risk of hemorrhage and infection. Venkatesh Staley MD [address], [place], [address], [facility] 12/20/2024 10:53:13 OBGyn Episode Ob Episode Information Episode Created Date Number of Fetuses Patient Bloodtype Patient rh Status Prepregnancy Weight lbs Domestic Partner Domestic Partner Phone Father Name Process Line Operator Status 09/30/20 24 1 CLOSED Fetus Data First Name Last Name Admitted to NICU Weight (g) Sex Living Outcome Pediatric Complications Fetus ID Race Codes Race Delivery Type Ectopic [id number] Hiram Calculation Initial Hiram Date Initial Exam Date Initial Exam Provider Initial Ultrasound Date Last Menstrual Period Date Ultra Sound Weeks Gestation 0 Eighteen To Twenty Week Hiram Update Ultra Sound Date Fundal Height At Umbil Quickening Date Ultra Sound Latest Weeks Gestation Final Hiram Confirmed By Final Hiram Confirmed Date Final Hiram Date Ultra Sound Latest Days Gestation 0 0 Menstrual History Last Menstrual Date Menses Monthly On Bcp Conception Prior Menses Frequency Hcg Plus Date Menarche Onset Age Delivery Information Delivery Date Delivery Type Labor Anesthesia Weeks Gestation Incision Type Labor Labor Length Hrs Delivered By Post Complications Tubal Sterilization Discharge Date Comments 4 Discharge Information Feeding Method Contraceptive Method Maternal HG B and HCT Levels Ob Episode Information Episode Created Date Number of Fetuses Patient Bloodtype Patient rh Status Prepregnancy Weight lbs Domestic Partner Domestic Partner Phone Father Name Process Line Operator Status 09/30/20 24 1 CLOSED Fetus Data First Name Last Name Admitted to NICU Weight (g) Sex Living Outcome Pediatric Complications Fetus ID Race Codes Race Delivery Type F Full Term [id number] Vaginal Delivery Hiram Calculation Initial Hiram Date Initial Exam Date Initial Exam Provider Initial Ultrasound Date Last Menstrual Period Date Ultra Sound Weeks Gestation 0 Eighteen To Twenty Week Hiram Update Ultra Sound Date Fundal Height At Umbil Quickening Date Ultra Sound Latest Weeks Gestation Final Hiram Confirmed By Final Hiram Confirmed Date Final Hiram Date Ultra Sound Latest Days Gestation 0 0 Menstrual History Last Menstrual Date Menses Monthly On Bcp Conception Prior Menses Frequency Hcg Plus Date Menarche Onset Age Delivery Information Delivery Date Delivery Type Labor Anesthesia Weeks Gestation Incision Type Labor Labor Length Hrs Delivered By Post Complications Tubal Sterilization Discharge Date Comments 1 Discharge Information Feeding Method Contraceptive Method Maternal HG B and HCT Levels
--- OUTSIDE RECORDS SUMMARY | 2025-02-03 14:47 | XMS_ITS | Referral Summary ---
Author Organization [facility] Address [address] [place] [address] Care Team Providers Care Retail Merchandising Coordinator Name Role Phone Hamlet Dougherty MD Primary Care Provider [phone] Allergies Active Allergy Reactions Criticality Noted Date [...] (01/22/2019): Added automatically from request for surgery [id number] Spinal stenosis of lumbar region 01/18/2019 Immunizations Immunization Administration Dates Next Due Tdap 2023 Social History Tobacco Use Types Packs/Day Years [...] on file Sexual Orientation Not on file Last Filed Vital Signs Vital Sign Reading [...] 2023 3:20 PM CDT Plan of Treatment Not on file Procedures Procedure Name Priority Date/Time Associated Diagnosis Comments HEPATITIS PANEL, ACUTE Routine 02/12/2019 8:09 PM CDT from Last 3 Months or Most Recently Relevant to Health Maintenance Results * Hepatitis panel, acute (02/12/2019 8:09 PM CDT) Hep A IgM Nonreactive Nonreactive [facility] Comment: Interpretive Data If test is reported as GRAYZONE, new sample should be drawn in two weeks for testing. Current interpretive data was last revised on 2016. Hep B core IgM Nonreactive Nonreactive [facility] Comment: Interpretive Data If test is reported as GRAYZONE, new sample should be drawn for testing. Current interpretive data was last revised on 2016. Hep C Ab Nonreactive Nonreactive [facility] Comment: Interpretive Data Positive results should be confirmed by a molecular method. If positive, a second separately collected sample should be submitted for Hepatitis C Virus (HCV) RNA Detection and Quantitation by Real-Time Reverse Pattern Molder-PCR (RT-PCR). Current interpretive data was last revised on 2016. HepBsAg Nonreactive Nonreactive [facility] Blood specimen (specimen) 02/12/2019 8:09 PM CDT 02/12/2019 8:50 PM CDT N[facility]ative [facility] - 02/13/2019 11:45 AM CDT Caridad Ramey MD LAB MICROBIOLOGY - GENERAL O RDERABLES Edited Result - Final [facility] Department [place] [address] from Last 3 Months or Most Recently Relevant to Health Maintenance Insurance [facility]/PPO Address: [address] [place] [address] [facility] WELLCARE MEDICARE HMO Advance Directives For more information, please contact: [phone] Documents on File Type Date Recorded Patient Neck Fitter Expl anation ADVANCE DIRECTIVE 02/12/2019 11:16 AM [...] 6:08 AM 03/16/2021 4:56 AM Care Teams Retail Merchandising Coordinator Relationship Specialty Start Date End Date Hamlet Dougherty MD PCP - General Family Medicine 11/15/18
--- OUTSIDE RECORDS SUMMARY | 2025-02-03 14:47 | XMS_ITS ---
Author Organization [facility] As [employer] Address [address] [place] [address] [address] Care Team Providers Care Geriatric Social Worker Name Role Phone Ladonna LEO, Hamlet Primary Care Provider Donald Tran Unavailable [phone] REASON FOR VISIT no show Social History Sex Assigned At : Social History Observation Description Sex Assigned At Female Encounters Encounter Location Date Provider Diagnosis [facility] [address] [address] 01/20/2025 Donald Kc Plan Of Treatment Next Appt Details Provider Name:Donald Kc , 02/10/2025 02:00:00 PM, [address] [place] [address], [address], [address], Provider Name:Donald Kc , 03/03/2025 01:30:00 PM, [address] [place] [address], [address], Progress Notes * STORM MELARA LDOB:1980 (44 yo F)Acc No.[id number]:01/20/2025 Patient: PAYTON MAIERGreg Dorman :1980 A ge:44 Y S ex:Female Address:[address] [place] [address], [phone] * true * Date: Generated for Printi ng/Fareagang/eTransmitting on: 0 02/03/2025 02:47 PM CDT
== END 2025-02-03 12:26 | disposition home or self-care (01) ==
PROVIDERS: PCP Family Medicine; Visit Provider Obstetrics & Gynecology
DX: F17.200 Nicotine dependence, unspecified, uncomplicated (principal); Z01.818 Encounter for other preprocedural examination
CPT/HCPCS: 93005

== ENCOUNTER 2025-02-04 00:14 | Day surgery (SDC) | payer MEDICARE, SELFPAY ==
[2025-02-03 09:37] VITALS: BMI 30.1
--- NOTE | 2025-02-03 09:38 | PC.NURSE ---
Addendum entered by Pita Phillip RN 02/03/25 10:03: Pt notified may take gabapentin, buspirone, and escitalopram morning of surgery with a small sip of water. Original Note: Report to the Outpatient Waiting Room, entrance under the green pavilion located off [facility], at time _8:00am on date _[id number] . Planned Procedure Time: __10:00am .? Time changes happen often and if your time is changed the preop area will call you the afternoon before. - You and your visitor will be asked to self-screen and do not enter if you have any COVID symptoms. Please call surgeon if you need to reschedule. - A mask is optional within the hospital at this time. Patients may have clear liquids (water, carbonated beverages, clear teas, apple juice) until 3 hours prior to surgery with a maximum of 20 ounces. STOP AT 7AM - No food from midnight until time of surgery and no smoking, or chewing tobacco (or any form of nicotine). No chewing gum, candy or mints. DO NOT STOP ANY OF YOUR OTHER PRESCRIPTION MEDICATIONS PRIOR TO SURGERY EXCEPT THE FOLLOWING: N/A Hold all vitamins and supplements for 3 days per anesthesiologist. N/A Medications to discontinue per physician N/A Please no make-up, nail croatian, hairspray, perfume, deodorant, or body powder the day of surgery.? No jewelry (including any body piercings) or valuables the day of surgery, leave them at home.? Please take a shower or bath the night before, or the morning of, surgery with an antibacterial soap.? Wear comfortable, loose fitting clothing.? - Jewelry must be removed prior to entering the operating room.? Rings and piercings that are not removed may be cut off. - The hospital will not accept responsibility for valuables.? - Please leave all valuables, including medications, at home the day of surgery. If you are going home after surgery, a licensed funeral car driver must drive you home.? - NO public transportation without another adult if you receive anesthesia. - We recommend that an adult stay with you for 24 hours following discharge. - We also recommend that you do not drive, make important decision, drink alcoholic beverages, or take any drugs that were not prescribed by your health care provider for at least 24 hours after your discharge time. Follow any additional instructions given to you from your surgeon. Telephone instructions given to __STORM (PATIENT) and asked if any additional questions and then verbalized understanding. Patient advised to call surgeon office or pre surgery nurse liaison [phone] if any additional questions.
[2025-02-04] VITALS (7 sets, daily range): BP systolic 118–133; BP diastolic 52–88; PULSE 70–88; RESP 9–16; TEMP 36.1–36.5; O2SAT 98–100; BMI 30.1
--- OUTSIDE RECORDS SUMMARY | 2025-02-04 00:17 | XMS_ITS ---
Author Organization [facility] As [employer] Address [address] [place] [address] Care Team Providers Care Welding Pantograph Operator Name Role Phone Ladonna LEO, Hamlet Primary Care Provider Unavaila Donald Wagner Unavailable [phone] Allergies Allergen (clinical drug ingredient) Drug/Non Drug [...] MG Oral 02/28/2024 Active Ergocalciferol 1.25 MG (60896 UT) Oral 02/28/2024 Active Meloxicam 7.5 MG [...] W/U Status Risk Notes Problem Poor concentration (59775280) Poor concentration (R41.840) Active confirmed Vital Signs Blood pressure systolic 107 mm Hg 01/21/20 25 Blood pressure diastolic 74 mm Hg 025 Heart Rate 94 /min 01/20/2025 Height 62.00 in 01/20/2025 Weight 166.0 lbs 01/20/2025 BMI 30.36 kg/m2 01/20/2025 Height-cm 157.48 cm 01/20/2025 Weight-kg 75.3 kg 01/20/2025 Encounters Encounter Location Date Provider Diagnosis [facility] [address] [place] [address] 01/20/2025 Donald Hall Major depressive disorder, recurrent [...] Provider Name:Donald Hall , 02/10/2025 02:00:00 PM, [facility] [facility], [address], [address], Provider Name:Donald Hall , 03/03/2025 01:30:00 PM, [facility], [address], [address], Progress Notes * STORM MELARA LDOB:1980 (44 yo F)Acc No.[id number]:01/20/2025 Patient: STORM MAIER Provider: Skyler HALL MD :1980 A ge:44 Y S ex:Female Date:01/20/2025 Address:[address] [place], [place] [id number] Pcp:Hamlet Dougherty MD Subjective: * Chief Complaints: [...] P ositve F ollow-Up for Depression [facility] treatment assessment, Patient follow-up to return [...] es D o you have Power of Police Commanding Officer for Health or Medical? N o * Medications: T akingMeloxicam 7.5 MG Tablet 1 tablet Orally Once a day Ergocalciferol 1.25 MG (17906 UT) Capsule Oral Pantoprazole Sodium 40 MG [...] Once a day Taking Ergocalciferol 1.25 MG (03819 UT) Capsule Oral Taking Pantoprazole Sodium 40 [...] 9902 Pt scrn tbco and id as [id number] BEHAV ASSMT W/SCORE & DOCD/STAND [id number] CLIN DEPRESSION SCREEN DOC * Preventive Medicine: [...] Weeks * Billing Information: * Visit Code: 48348 OFFICE OUTPATIENT VISIT 25 MINUTES DETAILED HISTORY AND EXAM/MODERATE MEDICAL DECISION MAKING. * Procedure Codes: G9902 Pt scrn tbco and id as user. [id number] BEHAV ASSMT W/SCORE & DOCD/STAND INSTRUMENT. G8431 CLIN DEPRESSION SCREEN DOC. * ICIDE APPLICATOR Sign off status: Completed true * Provider: Skyler HALL MD Date: 0 01/20/2025 Generated for Printi ng/Fareagang/eTransmitting on: 0 02/04/2025 12:16 AM CDT History and Physical Notes * HPI [...] Screening Findings: P ositve Follow-Up for Depression: [facility] treatment assessment, Patient follow-up to return when [...] Interpretation of Total: (5 to 9) Mild [place]-Suicide Severity Rating Scale Suicide Risk (CSRS-screener) in [...]
--- OUTSIDE RECORDS SUMMARY | 2025-02-04 00:18 | XMS_ITS ---
Author Organization [facility] As [employer] Address [address] [place] [address] [address] Care Team Providers Care Manager Track Name Role Phone Ladonna LEO, Hamlet Primary Care Provider Donald Tran Unavailable [phone] REASON FOR VISIT no show Social History Sex Assigned At : Social History Observation Description Sex Assigned At Female Encounters Encounter Location Date Provider Diagnosis [facility] [employer] [address] [address] 01/20/2025 Donald Kc Plan Of Treatment Next Appt Details Provider Name:Donald Kc , 02/10/2025 02:00:00 PM, [address] [place] [address], [address], [address], Provider Name:Donald Kc , 03/03/2025 01:30:00 PM, [address] [place] [address], [address], Progress Notes * STORM MELARA LDOB:1980 (44 yo F)Acc No.[id number]:01/20/2025 Patient: PAYTON MAIERGreg Dorman :1980 A ge:44 Y S ex:Female Address:[address] [place] [address], [address] * true * Date: Generated for Printi ng/Fareagang/eTransmitting on: 0 02/04/2025 12:18 AM CDT
--- OUTSIDE RECORDS SUMMARY | 2025-02-04 00:18 | XMS_ITS | Encounter Summary ---
Author Organization [facility] Address [address] [place] [address] Care Team Providers Care Chemical Milling Processor Name Role Phone Hamlet Dougherty MD Primary Care Provider [phone] Encounter Details Date Type Department Care Team (Late st Contact Info) Description 10/24/2020 Therapy [facility] [address] [place] [address] Estrada Coffman MD [address] [facility] [address] [place] [address] Severe episode of recurrent major depressive disorder, [...] Primary documented in this encounter Care Teams Chemical Milling Processor Relationship Specialty Start Date End Date Hamlet Dougherty MD PCP - General Family Medicine 11/15/18 documented as of this encounter
--- OUTSIDE RECORDS SUMMARY | 2025-02-04 00:18 | XMS_ITS | Referral Summary ---
Author Organization [facility] Address [address] [place] [address] Care Team Providers Care Administration Internship Name Role Phone Hamlet Dougherty MD Primary Care Provider [phone] Allergies Active Allergy Reactions Criticality Noted Date [...] (01/22/2019): Added automatically from request for surgery [id number] Spinal stenosis of lumbar region 01/18/2019 Immunizations [...] CDT) Hep A IgM Nonreactive Nonreactive [facility] Comment: Interpretive Data If test is reported as GRAYZONE, new sample should be drawn in two weeks for testing. Current interpretive data was last revised on 2016. Hep B core IgM Nonreactive Nonreactive [facility] Comment: Interpretive Data If test is reported as GRAYZONE, new sample should be drawn for testing. Current interpretive data was last revised on 2016. Hep C Ab Nonreactive Nonreactive [facility] Comment: Interpretive Data Positive results should be confirmed by a molecular method. If positive, a second separately collected sample should be submitted for Hepatitis C Virus (HCV) RNA Detection and Quantitation by Real-Time Reverse Licensed Insurance Sales Agent-PCR (RT-PCR). Current interpretive data was last revised on 2016. HepBsAg Nonreactive Nonreactive [facility] Blood specimen (specimen) 02/12/2019 8:09 PM CDT 02/12/2019 8:50 PM CDT [facility]ative [facility] - 02/13/2019 11:45 AM CDT Caridad Ramey MD LAB MICROBIOLOGY - GENERAL O RDERABLES Edited Result - Final [facility] [place] [address] from Last 3 Months or Most Recently Relevant to Health Maintenance [facility] WELLCARE MEDICARE HMO Advance Directives For more information, please contact: [phone] Documents on File Type Date Recorded Patient Upholsterer Assembly Line Expl anation ADVANCE DIRECTIVE 02/12/2019 11:16 AM [...] 6:08 AM 03/16/2021 4:56 AM Care Teams Administration Internship Relationship Specialty Start Date End Date Hamlet Dougherty MD PCP - General Family Medicine 11/15/18
--- OUTSIDE RECORDS SUMMARY | 2025-02-04 00:18 | XMS_ITS | Clinical Summary ---
Author Organization [facility] Address [address] [place] [address] Care Team Providers Care Insemination Worker Name Role Phone Hamlet Dougherty MD Primary Care Provider [phone] Allergies Active Allergy Reactions Criticality Noted Date [...] (01/22/2019): Added automatically from request for surgery [id number] Spinal stenosis of lumbar region 01/18/2019 Immunizations [...] PM CDT) Hep A IgM Nonreactive Nonreactive [facility] Comment: Interpretive Data If test is reported as GRAYZONE, new sample should be drawn in two weeks for testing. Current interpretive data was last revised on 2016. Hep B core IgM Nonreactive Nonreactive [facility] Comment: Interpretive Data If test is reported as GRAYZONE, new sample should be drawn for testing. Current interpretive data was last revised on 2016. Hep C Ab Nonreactive Nonreactive [facility] Comment: Interpretive Data Positive results should be confirmed by a molecular method. If positive, a second separately collected sample should be submitted for Hepatitis C Virus (HCV) RNA Detection and Quantitation by Real-Time Reverse Pilot Boat Deckhand-PCR (RT-PCR). Current interpretive data was last revised on 2016. HepBsAg Nonreactive Nonreactive [facility] Blood specimen (specimen) 02/12/2019 8:09 PM CDT 02/12/2019 8:50 PM CDT Narrative [facility] - 02/13/2019 11:45 AM CDT Caridad Ramey MD LAB MICROBIOLOGY - GENERAL O RDERABLES Edited Result - Final [facility] One [facility] [place] [address] from Last 3 Months or Most Recently Relevant to Health Maintenance [facility] HMO [facility] H[facility]/PPO Address: [facility] [id number] [place] [address] WELLCARE MEDICARE HMO Advance Directives For more information, please contact: [phone] Documents on File Type Date Recorded Patient Handle Machine Operator Expl anation ADVANCE DIRECTIVE 02/12/2019 11:16 AM [...] 6:08 AM 03/16/2021 4:56 AM Care Teams Insemination Worker Relationship Specialty Start Date End Date Hamlet Dougherty MD PCP - General Family Medicine 11/15/18
--- OUTSIDE RECORDS SUMMARY | 2025-02-04 00:18 | XMS_ITS ---
Author Organization [facility] As [employer] [facility] Address [address] [place] [address] [address] [facility] [address] [place] [address] Care Team Providers Care Custom Feed Corn Operator Name Role Phone Ladonna LEO, Hamlet Primary Care Provider UnavailDonald Horner Unavailable [phone] Social History Sex Assigned At : Social History Observation Description Sex Assigned At Female Encounters Encounter Location Date Provider Diagnosis [facility] [employer] [address] [address] 01/21/2025 Donald Kc Plan Of Treatment Next Appt Details Provider Name:Donald Kc , 02/10/2025 02:00:00 PM, [address] [place] [address], [address], [address], Provider Name:Donald Kc , 03/03/2025 01:30:00 PM, [address] [place] [address], [address], [address], Progress Notes * STORM MELARA LDOB:1980 (44 yo F)Acc No.[id number]:01/21/2025 Patient: BRODY MAIERJENNA Dorman :1980 A ge:44 Y S ex:Female Address:[address] [place] [address], [address] * * Date:
--- NOTE | 2025-02-04 07:24 | P.HP_ITS ---
H&P: HPI History of Present Illness Date/Time: 02/04/25 07:24 Chief Complaint: Menorrhagia Narrative: This patient is a 44-year-old female with severe menorrhagia. We agreed to perform endometrial ablation with laparoscopic bilateral salpingectomy. The patient understands the details of the procedure. The procedure has been explained in detail. She understands the risks. She understands that injuries may occur that result in hospitalization, more surgery, and severe illness. She understands risk of hemorrhage and infection. She denies any chest pain or shortness of breath. She denies any nausea, vomiting, fever, chills. Review of Systems Review of Systems: All systems reviewed & are unremarkable except as noted in HPI and below Constitutional: Constitutional: Denies chills, Denies fatigue, Denies fever(s) and Denies weakness Eyes: Eyes: Denies blurry vision, Denies change in vision, Denies loss of peripheral vision, Denies loss of vision, Denies other visual disturbances and Denies eye pain ENT: Denies vertigo, Denies dizziness, Denies hearing loss, Denies mouth pain, Denies nasal obstruction, Denies neck mass and Denies neck pain Cardiovascular: Cardiovascular: Denies chest pain, Denies diaphoresis, Denies syncope, Denies leg edema and Denies dyspnea Respiratory: Respiratory: Denies chest congestion, Denies cough, Denies hemoptysis, Denies dyspnea and Denies wheezing Gastrointestinal: Gastrointestinal: Denies abdominal pain, Denies constipation, Denies diarrhea, Denies nausea and Denies vomiting Genitourinary: Genitourinary: Denies hematuria, Denies change in libido, Denies nocturia, Denies genital lesions, Denies flank pain and Denies urinary urgency Musculoskeletal: Musculoskeletal: Denies abnormal gait, Denies back pain, Denies myalgias, Denies arthralgias, Denies joint swelling, Denies muscle weakness and Denies neck pain Integumentary/Breasts: Skin/Breast: Denies swelling, Denies breast pain, Denies breast mass, Denies dry skin, Denies nipple discharge, Denies unusual bruising and Denies jaundice Neurologic: Denies Neuro-related abnormal movements, Denies Abnormal speech present, Denies abnormal gait, Denies behavioral changes, Denies confusion, Denies vertigo, Denies dizziness, Denies syncope, Denies loss of vision, Denies memory loss, Denies convulsions and Denies weakness Psychiatric: Psychiatric: Denies abnormal sleep pattern, Denies behavioral changes, Denies change in libido, Denies confusion, Denies depression, Denies anhedonia and Denies memory loss Endocrine: Endocrine: Reports no additional endocrine complaints, Denies change in libido and Denies fatigue Hematologic/Lymphatic: Hematologic/Lymphatic: Reports no additional hematologic/lymphatic complaints Allergic/Immunologic: Allergic/Immunologic: Reports no additional allergic/immunologic complaints and Denies wheezing PMFSH Past Medical History Medical History Anxiety Degenerative disc disease, lumbar Depression Ectopic Migraine Need for lipid screening Pelvic pain Screening for diabetes mellitus Screening for malignant neoplasm of colon Urge incontinence of urine Surgical History Surgical History Previous back surgery January 2019 Family History Family History Father No problems noted. Mother Hypertension Family history of diabetes mellitus in first degree relative Grandparent Family history of malignant neoplasm of breast Sibling No problems noted. Social History Social History Smoking packs per day: 1 Smoking cigarettes per day: 20.0 Years smoked: 30 Smoking pack-years: 30.00 Smoking status: Current every day smoker Tobacco type: cigarettes Second hand tobacco smoke exposure: Yes Alcohol intake: never Drinks per week: 0 Alcohol use details: rarely Substance use: current Substance use type: marijuana Other substance usage details: x5 days per a week at . 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 Gender identity (if verbalized by the patient): Female Sexual Orientation (if Verbalized by the Patient): Straight or Heterosexual Spiritual care concerns: No Agree to blood products: Yes Meds Home Medications and Allergies Home Medications ?Medication ?Instructions ?Recorded ?Confirmed ?Type buspirone 5 mg tablet 5 mg PO BID 09/03/23 02/03/25 History escitalopram oxalate 20 mg tablet 20 mg PO DAILY 09/03/23 02/03/25 History gabapentin 400 mg capsule 400 mg PO TID 09/03/23 02/03/25 History cyclobenzaprine 10 mg tablet 10 mg PO TID PRN muscle spasm #30 12/17/24 02/03/25 Rx tabs meloxicam 7.5 mg tablet 7.5 mg PO DAILY #30 tabs 01/27/25 02/03/25 Rx aripiprazole 2 mg tablet 2 mg PO HS 02/03/25 02/03/25 History Allergies Allergy/AdvReac Type Severity Reaction Status Date / Time clindamycin AdvReac Intermediate Gastrointestinal Verified 02/03/25 09:34 Upset lamotrigine AdvReac Intermediate Gastrointestinal Verified 02/03/25 09:34 Upset Sulfa (Sulfonamide AdvReac Intermediate Gastrointestinal Verified 02/03/25 09:34 Antibiotics) Upset diphenhydramine AdvReac Mild Rash Verified 02/03/25 09:34 midazolam (From Versed) AdvReac Mild Nausea Verified 02/03/25 09:34 Opioids - Morphine Analogues AdvReac Nausea Verified 02/03/25 09:34 Exam Const: General: cooperative, healthy appearing, comfortable and no acute distress Orientation/consciousness: oriented to person, oriented to place and oriented to time HENMT: Head: normal to inspection Ears: external ears normal Face/Nose/Sinus: Normal external nose present and normal facial exam Face and sinus: normal facial exam Eyes: General: appearance normal, both eyes and all related structures Neck: Neck: normal visual inspection, trachea midline and supple Resp: Auscultation: clear to auscultation bilaterally, no crackles, no rales, no rhonchi and no wheezes Cardio: Rate: regular rate Rhythm: regular rhythm Heart sounds: no click, no murmurs and no rubs GI: GI Palp: No abdominal tenderness, No Soft to palpation, No Tenderness to palpation present (GI) and No Palpable mass present Auscultation: normal bowel sounds Skin: General skin exam: normal color and no rashes or lesions noted Neuro: General: oriented to person, oriented to place and oriented to time Extrem: General: normal to inspection, no joint enlargement, no clubbing, cyanosis or edema, no pedal edema and no calf tenderness Psych: Appearance: grossly normal Mental Status: mental status grossly normal Speech and movement: Normal speech and movement present Assessment and Plan Assessment and plan (1) Menorrhagia: Code(s): N92.0 - Excessive and frequent menstruation with regular cycle Status: Acute Assessment and Plan: This patient is a 44-year-old female with severe menorrhagia. We agreed to perform endometrial ablation with laparoscopic bilateral salpingectomy. She understands risks, benefits, and alternatives. She has completed the informed consent process is ready to proceed.
--- NOTE | 2025-02-04 07:24 | WPDHPUPDATE1 ---
History and Physical Update Update Date/Time: 02/04/25 07:24 History and Physical has been reviewed, including an updated exam of the patient. There are NO changes in the patient's condition. Risks, benefits, and alternatives have been discussed and questions answered. Patient agrees to proceed with procedure.
--- NOTE | 2025-02-04 08:31 | WPDANESEPPF ---
Anes - Initial Pre Proc Eval Procedure: Operation Date: 02/04/25 10:00 Proposed Procedures p Hysteroscopy with Joanna Endometrial Ablation - Venkatesh Hannon MD s Laparoscopic Right Salpingectomy - Venkatesh Hannon MD Date/Time: 02/04/25 08:31 Surgeon: Venkatesh Hannon MD Pre Op Diagnosis: Menorrhagia, Female Sterilization, Cyst Lt Ovary Patient Data Age: 44 Gender: F Height: 1.57 m Weight: 74.8 kg Allergies Allergy/AdvReac Type Severity Reaction Status Date / Time diphenhydramine Allergy Mild Rash Verified 02/04/25 08:03 clindamycin AdvReac Intermediate Gastrointestinal Verified 02/03/25 09:34 Upset lamotrigine AdvReac Intermediate Gastrointestinal Verified 02/03/25 09:34 Upset Sulfa (Sulfonamide AdvReac Intermediate Gastrointestinal Verified 02/03/25 09:34 Antibiotics) Upset midazolam (From Versed) AdvReac Mild Nausea Verified 02/03/25 09:34 Opioids - Morphine Analogues AdvReac Nausea Verified 02/03/25 09:34 Home Medications ?Medication ?Instructions ?Recorded ?Confirmed ?Type buspirone 5 mg tablet 5 mg PO BID 09/03/23 02/03/25 History escitalopram oxalate 20 mg tablet 20 mg PO DAILY 09/03/23 02/03/25 History gabapentin 400 mg capsule 400 mg PO TID 09/03/23 02/03/25 History cyclobenzaprine 10 mg tablet 10 mg PO TID PRN muscle spasm #30 12/17/24 02/03/25 Rx tabs meloxicam 7.5 mg tablet 7.5 mg PO DAILY #30 tabs 01/27/25 02/03/25 Rx aripiprazole 2 mg tablet 2 mg PO HS 02/03/25 02/03/25 History Patient hx anesthesia problems: post op nausea/vomiting Family hx anesthesia problems: none Results Review: All pre-operative results and documents have been reviewed as part of the pre-operative evaluation. [facility] Past Medical History Medical History Pelvic pain Urge incontinence of urine Degenerative disc disease, lumbar Screening for malignant neoplasm of colon Need for lipid screening Screening for diabetes mellitus Ectopic Migraine Anxiety Depression Surgical History Surgical History Previous back surgery January 2019 Family History Family History Father No problems noted. Mother Hypertension Family history of diabetes mellitus in first degree relative Grandparent Family history of malignant neoplasm of breast Sibling No problems noted. Social History Social History Smoking packs per day: 1 Smoking cigarettes per day: 20.0 Years smoked: 30 Smoking pack-years: 30.00 Smoking status: Current every day smoker Tobacco type: cigarettes Second hand tobacco smoke exposure: Yes Alcohol intake: never Drinks per week: 0 Alcohol use details: rarely Substance use: current Substance use type: marijuana Other substance usage details: x5 days per a week at hs. 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 Gender identity (if verbalized by the patient): Female Sexual Orientation (if Verbalized by the Patient): Straight or Heterosexual Spiritual care concerns: No Agree to blood products: Yes Anes - Eval Final PreProcedure Day of Procedure 02/04/25 08:31 Patient weight: obese Heart: regular rate and rhythm Lungs: decreased breath sounds Airway: Mallampati scale class III Neurological: alert and oriented Last oral intake: >/= 8 hours ASA classification: III Emergent: no Anesthetic plan: proceed Anesthesia type and monitoring: general ETT and standard monitoring Results Review: All pre-operative results and documents have been reviewed as part of the pre-operative evaluation. Informed Consent: The patient's anesthetic plan and its attendant risks and benefits were discussed with the patient/family/POA. Questions were solicited and answers provided to the satisfaction of the patient/family/POA.
[2025-02-04] MEDS: LACTATED RINGERS 1,000 ML 30 ML IV CONT (08:35)
[2025-02-04] MEDS: ACETAMINOPHEN 500 MG TABLET 1000 MG PO (08:40)
[2025-02-04] MEDS: KETOROLAC 15 MG/ML VIAL (*BKC) IV PUSH (08:40)
[2025-02-04 08:53] LABS: BEDSIDEPREGUCG Negative (Negative)
--- NOTE | 2025-02-04 11:22 | P.OP_ITS ---
Procedure Note - Detailed Date of Procedure 02/04/25 Pre-op Diagnosis Menorrhagia, Female Sterilization, Cyst Lt Ovary Post-op Diagnosis Same Procedure Performed Laparoscopic bilateral salpingectomy, OVARIAN CYSTECTOMY with endometrial ab lation and hysteroscopy. Surgeon Venkatesh Hannon MD Anesthesia General Indications Menorrhagia, female sterilization Findings NORMAL-APPEARING VULVA, VAGINA, CERVIX AND ENDOMETRIAL CAVITY. MULTIPLE SMALL LEFT OVARIAN CYST. COMPLETE LEFT FALLOPIAN TUBE AND PARTIAL RIGHT FALLOPIAN TUBE PRESENT. Description of Procedure Left fallopian tube was present, partial right fallopian tube was present. Left ovarian cyst, multiple small. Normal: vulva, vagina, cervix and endometrial cavity. Description of Procedure Patient was taken the operating room. She has prepped draped in the dorsal lithotomy position after induction of general anesthesia. A 5 mm abdominal incision was made in left upper quadrant of the abdomen with scalpel. A 5 mm trocars inserted the intra-abdominal cavity under direct visualization of the scope. Pneumoperitoneum was achieved. A 5 mm periumbilical incision was made using a scalpel on the abdominal scan. A 5 mm trocar was inserted the intra- abdominal cavity under visualization of the scope. A 5 mm incision made left lower quadrant of the abdomen. A 5 mm trocar was inserted the intra-abdominal cavity and direct visualization of the scope. The bilateral fallopian tubes were removed. The paratubal tissue in the area of the uterus was grasped with the LigaSure cautery and transected after being cauterized. The paratubal tissue from the ovary to the uterine cornu was cauterized and transected with LigaSure cautery. This was all done in a bilateral fashion. The tube was transected at the area of the uterine cornua and the tubes was removed through the 5 mm trocar site. Left ovarian cystectomy was performed. Multiple small The pneumoperitoneum was reduced. The trocars were removed. The skin was closed with subcuticular 4 Monocryl and covered with Dermabond. Our attention was then turned to the endometrial ablation portion of the procedure. A speculum was placed in the vagina. The cervix was grasp cysts were cauterized and lysed. Ed with a tenaculum. The cervix was dilated to approximately 8 mm with Woods dilators. The hysteroscope was inserted. And the below findings were noted. All of the intrauterine surfaces were curettaged with a medium-size curette and the specimens were collected. Measurements of the cervix were taken using the uterine sound and the hysteroscope. The intrauterine cavity measurements were entered into the handpiece. The device was inserted into the intrauterine cavity and the array was expanded. The balloon cuff was inflated. When an adequate seal was formed the safety and energy cycles were initiated and completed. The array was collapsed, the balloon was deflated. The insert was withdrawn. The hysteroscope was reinserted and a well desiccated intrauterine cavity was observed. The patient was taken recovery room stable condition. Sponge lap and needle counts were correct x2. She tolerated the procedure well. Pathology Yes Complications No immediate complications Condition Stable Disposition PACU
[2025-02-04] MEDS: fentaNYL CITRATE INJ (*CRX) 100 MCG/2 ML VIAL 25 MCG IV PUSH (12:06)
[2025-02-04] MEDS: oxyCODONE HCL (*CRX) 5 MG TAB IR PO (12:42)
== END 2025-02-04 13:15 | disposition home or self-care (01) ==
PROVIDERS: PCP Family Medicine; Visit Provider Obstetrics & Gynecology
PROC: 0U5B8ZZ Destruction of Endometrium, Via Natural or Artificial Opening Endoscopic (ICD-10-PCS; CPT 58563; principal; 2025-02-04 10:00)
PROC: (CPT 49320; 2025-02-04 10:00)
DX: N92.0 Excessive and frequent menstruation with regular cycle (principal); Z30.2 Encounter for sterilization; N83.8 Other noninflammatory disorders of ovary, fallopian tube and broad ligament; F17.210 Nicotine dependence, cigarettes, uncomplicated; F12.90 Cannabis use, unspecified, uncomplicated; E66.9 Obesity, unspecified; Z68.30 Body mass index [BMI] 30.0-30.9, adult
CPT/HCPCS: 58661; 58563; 58662; 88302; 88305; A9270; J1100; J1885; J2003; J2250; J2405; J2704; J3010; J7120

== ENCOUNTER 2025-03-12 13:59 | Outpatient (CLI) | payer MEDICARE, SELFPAY ==
--- NOTE | ~2025-03-12 | MM_ITS ---
EXAMINATION: MM screening mima BI w bartolo HISTORY: Screening TECHNIQUE: Craniocaudal and mediolateral oblique 3-D tomosynthesis images were obtained and synthetic 2-D images were generated. CAD analysis was submitted and interpreted. COMPARISON: Comparison to multiple prior studies sequentially, with oldest reviewed study dated 07/31. BREAST PARENCHYMAL COMPOSITION: Dense: The breasts are heterogeneously dense, which may obscure small masses FINDINGS: There is developing subareolar asymmetry of the left breast on CC view. The right breast is stable without evidence for malignancy. IMPRESSION: 1. Developing subareolar asymmetry of the left breast, best seen on CC view. 2. Additional mammographic views and possible breast ultrasound are recommended. BI-RADS Category 0: Incomplete: Needs additional imaging evaluation. Reviewed, dictated and finalized at location A. IMPRESSION: 1. Developing subareolar asymmetry of the left breast, best seen on CC view. 2. Additional mammographic views and possible breast ultrasound are recommended . BI-RADS Category 0: Incomplete: Needs additional imaging evaluation.
--- OUTSIDE RECORDS SUMMARY | 2025-03-12 15:57 | XMS_ITS | Patient Health Record ---
Author Organization [facility] [employer] Address [address] [facility] [address] [place] [address] Care Team Providers Care Shirt Sewer Name Role Phone Ladonna LEO, [place] Primary Care Provider Unavaila Donald Wagner Unavailable [phone] Migration, Provider Unavailable Unavailable Allergies Allergen (clinical drug ingredient) Drug/Non Drug [...] Sertraline Unknown Drug Allergy 11/10/2023 Acti ve Results Component Value Reference Range Notes CBC W/ AUTO DIFF Reviewed date:04/01/2024 12:00:00 AM Interpretation: Performing Lab: Notes/Report: CMP, SERUM OR PLASMA Reviewed date:04/01/2024 12:00:00 AM Interpretation: Performing Lab: Notes/Report: HBA1C (HEMOGLOBIN A1C), IRIS Lang Reviewed date:04/01/2024 12:00:00 AM Interpretation: Performing Lab: Notes/Report: INSULIN, SERUM Reviewed date:04/01/2024 12:00:00 AM Interpretation: Performing Lab: Notes/Report: LIPID PANEL, SERUM Reviewed date:04/01/2024 12:00:00 AM Interpretation: Performing Lab: Notes/Report: TSH, SERUM, REFLEX FREE T4 Reviewed date:04/01/2024 12:00:00 AM Interpretation: Performing Lab: Notes/Report: VITAMIN B12 + FOLATE, SERUM OR BLOOD Reviewed date:04/01/2024 12:00:00 AM Interpretation: Performing Lab: Notes/Report: VITAMIN D, 25-HYDROXY, TOTAL , SERUM Reviewed date:04/01/2024 12:00:00 AM Interpretation: Performing Lab: Notes/Report: PRESCRIBED DRUGS, medMATCH(R ) ([id number]) Reviewed date:02/20/2025 08:14:19 PM Interpretation: Performing Lab:NOEMI [id number] Pina Kelley, [id number] Isreal Fry MD Notes/Report: FASTING: NO medMATCH Summary Prescribed Prescribed Not Prescribed Consistent Inconsistent Inconsistent Codeine Hydrocodone Marijuana Metabolite Morphine Norhydrocodone DRUG MONITOR, OPIATES EXPAND ED, QN, URINE ([id number]) Reviewed date:02/20/2025 08:14:19 PM Interpretation: Performing Lab:[facility] KE[facility]-[address] [facility] [place], David CourtneyFtykMI[address] Delbert Stone, Director - [id number] Pina Kelley[employer]-[place] Notes/Report: FASTING: NO Codeine >57205 <50 ng/mL medMATCH Codeine INCONSISTENT Hydrocodone 116 <50 ng/mL medMATCH Hydrocodone INCONSISTENT Hydromorphone NEGATIVE <50 ng/mL Morphine 618 <50 ng/mL medMATCH Morphine INCONSISTENT Norhydrocodone 82 <50 ng/mL medMATCH Norhydrocodone INCONSISTENT Opiates Comments See Opiates Notes, LDT Notes Noroxycodone NEGATIVE <50 ng/mL Oxycodone NEGATIVE <50 ng/mL Oxymorphone NEGATIVE <50 ng/mL Oxycodone Comments See LDT N otes Notes and Comments This drug testing is for medical treatment only. Analysis was performed as non-forensic testing and these results should be used only by healthcare providers to render diagnosis or treatment, or to monitor progress of medical conditions. Marijuana Notes: Marijuana Metabolite detected is consistent with exposure to Marijuana (THC) and/or hemp derived products. Some jurisdictions do not include hemp within the definition of Marijuana. Opiates Notes: Codeine, Morphine detected is consistent with the use of the drug Codeine. Morphine is a metabolite of Codeine. Low concentrations of Morphine have been observed following ingestion of products containing poppy seeds. Morphine detected is consistent with the use of the drug Morphine. Morphine can be a prescribed drug and is also a metabolite of Codeine and Heroin. Low concentrations of Morphine have been observed following ingestion of products containing poppy seeds. Hydrocodone, Norhydrocodone detected is consistent with the use of the drug Hydrocodone. The metabolite Hydromorphone is not present at or above the cutoff. Hydrocodone < 15% Codeine detected is consistent with Hydrocodone as minor metabolite of Codeine. LDT Notes: Confirmation tests were developed and their analytical performance characteristics have been determined by [employer]. It has not been cleared or approved by the FDA. This assay has been validated pursuant to the CLIA regulations and is used for clinical purposes. medMATCH(R) enables providers to identify if drug use is consistent or inconsistent with a corresponding prescribed medication(s) list. Healthcare Providers needing Interpretation assistance, please contact us at [phone] ( ) M-F, 8am to 10pm EST DRUG MONITOR, MARIJUANA META B, QN, URINE ([id number]) Reviewed date:02/20/2025 08:14:19 PM Interpretation: Performing Lab:ROBIN [facility], David [id number] Delbert Stone Notes/Report: FASTING: NO Marijuana Metabolite 344 <5 ng/mL medMATCH Marijuana Metab INCONSISTENT Marijuana Comments See Pallavi funes Notes, LDT Notes UDT Reviewed date:02/12/2025 08:57:02 PM Interpretation: Performing Lab: Notes/Report: THC p 0 - 50 ng/ml Cocaine n 0 - 300 ng/ml Amphetamine n 0 - 1000 ng/ml Buprenorphine (BUP) n 0 - 10 ng/ml Secobarbital (Bar) n 0 - 300 ng/ml Oxazepam (BZO) n 0 - 300 ng/ml 4-moscurjqhf-6,6-noulrqvw-9, 3-diphen ylpyrrolidine (EDDP) n 0 - 300 ng/ml Methamphetamine (MET) n 0 - 1000 ng/ml Methylenedioxymethamphetamine (MDMA) n 0 - 500 ng/ml Morphine (MOP 300/PDE8742) p 0 - 300 ng/ml Methadone (MTD) n 0 - 300 ng/ml Phencyclidine (PCP) n 0 - 25 ng/ml Nortriptyline (TCA) n 0 - 1000 ng/ml Oxycodone n 0 - 300 ng/ml Reason For Referral No Information Medications Medication SIG (Take, Route, Frequency, Duration) Notes Start Date End Date Status Meloxicam 7.5 MG 1 tablet Orally Once a day Active ARIPiprazole 2 MG 1 tablet Orally Once a day for 90 days rx send on Active Escitalopram Oxalate 20 MG 1 tablet Orally Once a day for 90 days rx send on Active busPIRone HCl 5 MG 1 tablet Oral three times a day for 90 days rx send on Active Gabapentin 400 MG TAKE 1 CAPSULE BY MOUTH THREE TIMES A DAY for 30 Active busPIRone HCl 5 MG 1 tablet Oral three times a day for 30 days Active Cyclobenzaprine HCl 10 MG Oral 02/28/2024 Active ARIPiprazole 5 MG 1 tablet Orally Once a day for 90 days Active Ergocalciferol 1.25 MG (00035 UT) Oral 02/28/2024 Active Pantoprazole Sodium 40 MG Oral 02/28/2024 Active Immunizations Vaccine Route Administration Date Status Comme nts Tdap Unknown 04/01/2021 Administered Pfizer [employer]ion[employer] Covid-19 Vac cine 2nd dose Unknown 09/27/2021 Administered Pfizer [employer] Covid-19 Vac cine 2nd dose Unknown 10/18/2021 Administered Social History Tobacco Use: Social History Observation [...] Problem Status W/U Status Risk Notes Problem Severe recurrent major depression without psychotic features (76804597) Major depressive disorder, recurrent 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.2) 02/28/20 Active confirmed Problem Generalized anxiety disorder (32742165) Generalized anxiety disorder (F41.1) 02/28/20 24 Active confirmed Problem Primary insomnia (8831342) Primary insomnia (F51.01) Active confirmed Problem Poor concentration (74082885) Poor concentration (R41.840) Active confirmed Vital Signs Heart Rate 94 /min 01/20/2025 Height-cm 157.48 cm 01/20/2025 Blood pressure diastolic 74 mm Hg 01/20/2025 Weight-kg 75.3 kg 01/20/2025 Height 62.00 in 01/20/2025 Blood pressure systolic 107 mm Hg 01/20/2025 Weight 166.0 lbs 01/20/2025 BMI 30.36 kg/m2 01/20/2025 Encounters Encounter Location Date Provider Diagnosis [facility] [address] [facility] [address] [place] [address] 05/27/2024 Donald Yamini Major depressive disorder, recurrent severe without psychotic features F33.2 ; Generalized anxiety disorder F41.1 and Primary insomnia F51.01 [facility] [address] [facility] [address] [facility] [address] [place] [address] 08/26/2024 Donald Yamini Major depressive disorder, recurrent severe without psychotic features F33.2 ; Generalized anxiety disorder F41.1 and Primary insomnia F51.[address] [facility] [address] [facility] [address] [facility] [address] [place] [address] 12/16/2024 Donald Kc [facility], [facility] [address] [place] [address] 01/13/2025 Donald Kc [facility], [facility] [address] [place] [address] 01/20/2025 Donald Yamini Major depressive disorder, recurrent severe without psychotic features F33.2 ; Generalized anxiety disorder F41.1 ; Primary insomnia F51.01 and Poor concentration R41.840 [facility], [facility] [address] [place] [address] 02/10/2025 Donaldgrisel Kc Lack of concentratio n R41.840 [facility], [facility] [address] [place] [address] 03/03/2025 Donald Kc [facility], [facility] [address] [place] [address] 03/29/2024 Provider Migration [facility], [facility] [address] [place] [address] 04/02/2024 Provider Migration [facility], [facility] [address] [place] [address] 04/06/2024 Provider Migration [facility], [facility] [address] [place] [address] 04/07/2024 Provider Migration [facility], [facility] [address] [place] [address] 04/23/2024 Donald Kc [facility], [facility] [address] [place] [address] 07/09/2024 Donald Yamini [facility], [facility] [address] [place] [address] 07/09/2024 Donald Yamini Major depressive disorder, recurrent severe without psychotic features F33.2 [facility], [facility] [address] [place] [address] 07/29/2024 Donald Yamini Generalized anxiety disorder F41.1 [facility], [facility] [address] [place] [address] 12/18/2024 Donald Kc [facility], [facility] [address] [place] [address] 01/20/2025 Donald Kc [facility] [email or web address] [address] [place] [address] 01/21/2025 Donald Yamini [facility] [email or web address] [address] [place] [address] 07/23/2024 Donald Kc Assessments Encounter Date Diagnosis (ICD Code) Assessment Notes Treatment Notes Treatment Clinical Notes Section Notes 07/09/2024 Major depressive disorder, recurrent severe without psychotic features (ICD-10 - F33.2) 07/29/2024 Generalized anxiety disorder (ICD-10 - F41.1) 08/26/2024 Major depressive disorder, recurrent severe without psychotic features (ICD-10 - F33.2) Electronic Prior Authorization was requested for ARIPiprazole 2 MG Tablet. Provider can order medication once approval received. Major Depressive Disorder - Assessment: Patient reported worsening of depression after decreasing the dose of aripiprazole to 2 mg. Improvement was observed after increasing the dose back to 5 mg for about 3 weeks. Patient reports feeling level without major mood swings, but not experiencing highs. - Plan: Continue escitalopram 20 mg and aripiprazole 5 mg. Monitor the patient's mood and adjust the medication as needed. Anxiety - Assessment: Patient reports that buspirone 5 mg three times a day has been helpful in managing anxiety, though some anxiety persists. - Plan: Continue buspirone 5 mg TID. Monitor the patient's anxiety levels and adjust the medication as needed. Tobacco Use - Assessment: Patient is currently smoking cigarettes and not planning to quit at the moment, stating it's their only vice left. - Plan: Encourage the patient to consider quitting smoking in the future and provide resources for smoking cessation when the patient is ready. Possible Urinary Tract Infection (UTI) - Assessment: Patient reports suspicion of a UTI and plans to get tested. - Plan: Patient to undergo testing for UTI and follow up with Dr. Durbin for further evaluation and treatment as needed. Back Problems - Assessment: Patient reports ongoing back problems and has an appointment with Dr. Durbin on Monday. - Plan: Patient to follow up with Dr. Durbin for evaluation and management of back problems. Coordination of Care - Assessment: Patient keeps Dr. Durbin up to date on mental health status. - Plan: Continue to coordinate care with Dr. Durbin as needed. Living Situation - Assessment: Patient reports moving back in with her daughter, both working at [employer]. Daughter's fiance helps with childcare. Upcoming Plans - Assessment: Patient has plans for Thanksgiving with parents visiting and [place] celebrations with family. 01/20/2025 Major depressive disorder, recurrent severe without psychotic features (ICD-10 - F33.2) 02/10/2025 Lack of concentration (ICD-10 - R41.840) ADHD Cognitive Assessment Analysis and Recommendations Subject: Storm Melara Date of : 1980 Age Group: 45 to 54 Assessment Date: 2025-02-11 1. Overview of Findings Cognitive Markers Outside Typical Range: 5 ASRS Questionnaire Not Available Major Observed Challenges: Severe impairment in response inhibition and sustained attention. Mild difficulties in planning and working memory. 2. Cognitive Performance Profile Domain Measure Result Percentile Interpretation Planning Spatial Planning (Score: 7) Below typical range 12 Indicates difficulty organizing or sequencing steps efficiently Working Memory Token Search (Score: 5) Within typical range 29 Borderline - reflects mild executive inefficiency Attention Feature Match (Errors: 1, RT: 3240ms) Reaction speed slower 43 to 58 Accuracy acceptable, but may show slower processing Response Inhibition Double Trouble (Errors: 32) Far below typical range 99 Significant difficulty suppressing incorrect responses under conflict Sustained Attention SART (Omission Errors: 109, RT variability: 303ms) Very poor consistency and vigilance 99 to 100 Strong indicator of attention disengagement or lapses 3. Performance Summary Context From the second report: Overall cognitive ability is mixed, with average to above-average performance in episodic memory ([facility]), spatial planning, and working memory. However, response inhibition shows a potentially invalid result, possibly due to excessive errors (32) that fall far outside the expected distribution. Reaction time metrics also suggest psychomotor slowing and inconsistent tempo during task execution. 4. Interpretive Summary The cognitive profile indicates clear evidence of dysfunction in ryan attention-regulat ion systems: Response inhibition deficits are severe. Errors in the Double Trouble task are well above the cutoff, suggesting a diminished ability to suppress distractions or irrelevant responses. Sustained attention breakdown is significant. The omission error rate of 109 is extremely elevated and consistent with chronic lapses in focus. Reaction time variability is elevated across tasks, particularly in SART, which often reflects difficulty maintaining consistent mental engagement. Despite some average scores in planning and memory, these severe deficits in inhibition and attention consistency warrant concern. 5. Recommendations Cognitive Strategy Support: Implement external structure to reduce reliance on internal inhibitory control, such as environmental cues, schedules, or visual organizers. Use task segmentation and checklists to support sustained engagement and reduce cognitive overload. Attention Management Techniques: Introduce paced work-rest cycles (for example, 25 minutes focus, 5 minutes break) to help maintain alertness. Reduce environmental distractions during complex or detail-focused tasks. Technology Aids: Employ reminder systems, timed alerts, and focus-enhancing applications that support attentional regulation and self-monitoring. Consider noise-reducing headphones or white noise for sustained task focus. Follow-Up Monitoring: Given the extent of inhibition and attentional deficits, consider periodic re-assessment to monitor for cognitive decline or improvement over time. Integrate caregiver or workplace observations to understand how these findings translate into real-world functioning. Final Note: While cognitive impairments are clear in specific domains, overall cognitive potential remains intact. The pattern is most consistent with an executive attentional dysfunction that affects sustained performance, task inhibition, and pace regulation. Structured supports and ongoing tracking are advised. 05/27/2024 Major depressive disorder, recurrent severe without psychotic features (ICD-10 - F33.2) Electronic Prior Authorization was requested for ARIPiprazole 2 MG Tablet. Provider can order medication once approval received. Visual Disturbance Episode - Assessment: Patient experienced a temporary visual disturbance in the right eye lasting four hours without associated migraine symptoms. Patient has an upcoming eye doctor appointment for further evaluation. Depression - Assessment: Patient reports a persistent, but not overwhelming, depressive state with a flat affect. Currently on Lexapro 20 mg and Aripiprazole 5 mg. - Plan: - Decrease Aripiprazole to 2.5 mg by having the patient cut the current 5 mg tablets in half. - Next prescription will be for Aripiprazole 2 mg. - Continue Lexapro 20 mg. Anxiety - Assessment: Patient's anxiety appears well-controlle d with Buspar 5 mg twice a day. - Plan: - Continue Buspar 5 mg twice a day. Insomnia - Assessment: Patient reports not taking Trazodone for the past month and using Flexeril for back pain, which helps with sleep. - Plan: - Discontinue Trazodone and consider it as an as-needed medication in the future. Back Pain - Assessment: Patient is currently taking Trimipramine twice a day and Gabapentin for anxiety and back pain management. - Plan: - Continue Trimipramine and Gabapentin as prescribed. Smoking Cessation - Assessment: Patient is not currently planning to quit smoking but is considering using a necklace device to help cut back. - Plan: - Encourage the patient to explore smoking cessation options and provide support as needed. Follow-up - Plan: Schedule a follow-up appointment in three months to assess the patient's response to the medication adjustments and monitor their overall mental health. 05/27/2024 Generalized anxiety disorder (ICD-10 - F41.1) Visual Disturbance Episode - Assessment: Patient experienced a temporary visual disturbance in the right eye lasting four hours without associated migraine symptoms. Patient has an upcoming eye doctor appointment for further evaluation. Depression - Assessment: Patient reports a persistent, but not overwhelming, depressive state with a flat affect. Currently on Lexapro 20 mg and Aripiprazole 5 mg. - Plan: - Decrease Aripiprazole to 2.5 mg by having the patient cut the current 5 mg tablets in half. - Next prescription will be for Aripiprazole 2 mg. - Continue Lexapro 20 mg. Anxiety - Assessment: Patient's anxiety appears well-controlle d with Buspar 5 mg twice a day. - Plan: - Continue Buspar 5 mg twice a day. Insomnia - Assessment: Patient reports not taking Trazodone for the past month and using Flexeril for back pain, which helps with sleep. - Plan: - Discontinue Trazodone and consider it as an as-needed medication in the future. Back Pain - Assessment: Patient is currently taking Trimipramine twice a day and Gabapentin for anxiety and back pain management. - Plan: - Continue Trimipramine and Gabapentin as prescribed. Smoking Cessation - Assessment: Patient is not currently planning to quit smoking but is considering using a necklace device to help cut back. - Plan: - Encourage the patient to explore smoking cessation options and provide support as needed. Follow-up - Plan: Schedule a follow-up appointment in three months to assess the patient's response to the medication adjustments and monitor their overall mental health. 05/27/2024 Primary insomnia (ICD-10 - F51.01) Visual Disturbance Episode - Assessment: Patient experienced a temporary visual disturbance in the right eye lasting four hours without associated migraine symptoms. Patient has an upcoming eye doctor appointment for further evaluation. Depression - Assessment: Patient reports a persistent, but not overwhelming, depressive state with a flat affect. Currently on Lexapro 20 mg and Aripiprazole 5 mg. - Plan: - Decrease Aripiprazole to 2.5 mg by having the patient cut the current 5 mg tablets in half. - Next prescription will be for Aripiprazole 2 mg. - Continue Lexapro 20 mg. Anxiety - Assessment: Patient's anxiety appears well-controlle d with Buspar 5 mg twice a day. - Plan: - Continue Buspar 5 mg twice a day. Insomnia - Assessment: Patient reports not taking Trazodone for the past month and using Flexeril for back pain, which helps with sleep. - Plan: - Discontinue Trazodone and consider it as an as-needed medication in the future. Back Pain - Assessment: Patient is currently taking Trimipramine twice a day and Gabapentin for anxiety and back pain management. - Plan: - Continue Trimipramine and Gabapentin as prescribed. Smoking Cessation - Assessment: Patient is not currently planning to quit smoking but is considering using a necklace device to help cut back. - Plan: - Encourage the patient to explore smoking cessation options and provide support as needed. Follow-up - Plan: Schedule a follow-up appointment in three months to assess the patient's response to the medication adjustments and monitor their overall mental health. 01/20/2025 Generalized anxiety disorder (ICD-10 - F41.1) 08/26/2024 Generalized anxiety disorder (ICD-10 - F41.1) Major Depressive Disorder - Assessment: Patient reported worsening of depression after decreasing the dose of aripiprazole to 2 mg. Improvement was observed after increasing the dose back to 5 mg for about 3 weeks. Patient reports feeling level without major mood swings, but not experiencing highs. - Plan: Continue escitalopram 20 mg and aripiprazole 5 mg. Monitor the patient's mood and adjust the medication as needed. Anxiety - Assessment: Patient reports that buspirone 5 mg three times a day has been helpful in managing anxiety, though some anxiety persists. - Plan: Continue buspirone 5 mg TID. Monitor the patient's anxiety levels and adjust the medication as needed. Tobacco Use - Assessment: Patient is currently smoking cigarettes and not planning to quit at the moment, stating it's their only vice left. - Plan: Encourage the patient to consider quitting smoking in the future and provide resources for smoking cessation when the patient is ready. Possible Urinary Tract Infection (UTI) - Assessment: Patient reports suspicion of a UTI and plans to get tested. - Plan: Patient to undergo testing for UTI and follow up with Dr. Durbin for further evaluation and treatment as needed. Back Problems - Assessment: Patient reports ongoing back problems and has an appointment with Dr. Durbin on Monday. - Plan: Patient to follow up with Dr. Durbin for evaluation and management of back problems. Coordination of Care - Assessment: Patient keeps Dr. Durbin up to date on mental health status. - Plan: Continue to coordinate care with Dr. Durbin as needed. Living Situation - Assessment: Patient reports moving back in with her daughter, both working at [employer]. Daughter's fiance helps with childcare. Upcoming Plans - Assessment: Patient has plans for Thanksgiving with parents visiting and [place] celebrations with family. 08/26/2024 Primary insomnia (ICD-10 - F51.01) Major Depressive Disorder - Assessment: Patient reported worsening of depression after decreasing the dose of aripiprazole to 2 mg. Improvement was observed after increasing the dose back to 5 mg for about 3 weeks. Patient reports feeling level without major mood swings, but not experiencing highs. - Plan: Continue escitalopram 20 mg and aripiprazole 5 mg. Monitor the patient's mood and adjust the medication as needed. Anxiety - Assessment: Patient reports that buspirone 5 mg three times a day has been helpful in managing anxiety, though some anxiety persists. - Plan: Continue buspirone 5 mg TID. Monitor the patient's anxiety levels and adjust the medication as needed. Tobacco Use - Assessment: Patient is currently smoking cigarettes and not planning to quit at the moment, stating it's their only vice left. - Plan: Encourage the patient to consider quitting smoking in the future and provide resources for smoking cessation when the patient is ready. Possible Urinary Tract Infection (UTI) - Assessment: Patient reports suspicion of a UTI and plans to get tested. - Plan: Patient to undergo testing for UTI and follow up with Dr. Durbin for further evaluation and treatment as needed. Back Problems - Assessment: Patient reports ongoing back problems and has an appointment with Dr. Durbin on Monday. - Plan: Patient to follow up with Dr. Durbin for evaluation and management of back problems. Coordination of Care - Assessment: Patient keeps Dr. Durbin up to date on mental health status. - Plan: Continue to coordinate care with Dr. Durbin as needed. Living Situation - Assessment: Patient reports moving back in with her daughter, both working at [employer]. Daughter's fiance helps with childcare. Upcoming Plans - Assessment: Patient has plans for Thanksgiving with parents visiting and [place] celebrations with family. 01/20/2025 Primary insomnia (ICD-10 - F51.01) 01/20/2025 [...] - If diagnosed, consider appropriate pharmacological and non-pharmacologic al interventions. Sub-threshold Post-Traumatic Stress Disorder (PTSD) - [...] monitor mental health symptoms. Plan Of Treatment No Information Insurance Providers Payer Name Payer Address Payer Phone Subscriber Number Group Number Insured Name Patient Relationship to Insured Coverage Start Date Coverage End Date [employer] Medicare Replacemen t/Advantag e - Ppo [address] [address] [place] [address] [id number] STORM MELARA Self - patient is the insured Medical (General) History Medical History History ICD Code Problems: Cocaine user Generalized anxiety disorder Primary insomnia Prolapsed lumbar intervertebral disc Recurrent major depressive episodes Severe recurrent major depression withou t psychotic features Spinal stenosis of lumbar region , Surgical History Surgery Date(Month/Year) Procedure on back ([id number]) 11/20/2018 Other 01/18/2019 Removal of ectopic fetus ([id number]) 02/2006
--- OUTSIDE RECORDS SUMMARY | 2025-03-12 15:57 | XMS_ITS | Referral Summary ---
Author Organization [facility] Address [address] [place] [address] Care Team Providers Care Application Manager Name Role Phone Hamlet Dougherty MD Primary Care Provider [phone] Allergies Active Allergy Reactions Criticality Noted Date [...] (01/22/2019): Added automatically from request for surgery [id number] Spinal stenosis of lumbar region 01/18/2019 Immunizations Immunization Administration Dates Next Due Tdap 2023 Social History Tobacco Use Types Packs/Day Years Used Date Smoking Tobacco: Every Day Cigarettes 1 29.3 Started: 1995 Smokeless Tobacco: Never Alcohol Use [...] CDT) Hep A IgM Nonreactive Nonreactive [facility] Comment: Interpretive Data If test is reported as GRAYZONE, new sample should be drawn in two weeks for testing. Current interpretive data was last revised on 2016. Hep B core IgM Nonreactive Nonreactive [facility] Comment: Interpretive Data If test is reported as GRAYZONE, new sample should be drawn for testing. Current interpretive data was last revised on 2016. Hep C Ab Nonreactive Nonreactive [facility] Comment: Interpretive Data Positive results should be confirmed by a molecular method. If positive, a second separately collected sample should be submitted for Hepatitis C Virus (HCV) RNA Detection and Quantitation by Real-Time Reverse Beekeeper Farmer-PCR (RT-PCR). Current interpretive data was last revised on 2016. HepBsAg Nonreactive Nonreactive [facility] Blood specimen (specimen) 02/12/2019 8:09 PM CDT 02/12/2019 8:50 PM CDT Narrative [facility] - 02/13/2019 11:45 AM CDT Caridad Ramey MD LAB MICROBIOLOGY - GENERAL O RDERABLES Edited Result - Final [facility] [place] [address] from Last 3 Months or Most Recently Relevant to Health Maintenance Insurance [facility] WELL[employer] MEDICARE HMO Advance Directives For more information, please contact: [phone] Documents on File Type Date Recorded Patient Groover Runner Expl anation ADVANCE DIRECTIVE 02/12/2019 11:16 AM [...] 6:08 AM 03/16/2021 4:56 AM Care Teams Application Manager Relationship Specialty Start Date End Date Hamlet Dougherty MD PCP - General Family Medicine 11/15/18
--- OUTSIDE RECORDS SUMMARY | 2025-03-12 15:57 | XMS_ITS | Clinical Summary ---
Author Organization [facility] Address [address] [place] [address] Care Team Providers Care Director Of Broadcast Name Role Phone Hamlet Dougherty MD Primary Care Provider [phone] Allergies Active Allergy Reactions Criticality Noted Date [...] (01/22/2019): Added automatically from request for surgery [id number] Spinal stenosis of lumbar region 01/18/2019 Immunizations [...] 5 season) 2024 10/18/2021, 09/27/2021 Influenza Vaccine (Season Ended) 2025 DTaP/Tdap/Td Vaccine (3 - Td or Tdap) [...] PM CDT) Hep A IgM Nonreactive Nonreactive [facility] Comment: Interpretive Data If test is reported as GRAYZONE, new sample should be drawn in two weeks for testing. Current interpretive data was last revised on 2016. Hep B core IgM Nonreactive Nonreactive [facility] Comment: Interpretive Data If test is reported as GRAYZONE, new sample should be drawn for testing. Current interpretive data was last revised on 2016. Hep C Ab Nonreactive Nonreactive [facility] Comment: Interpretive Data Positive results should be confirmed by a molecular method. If positive, a second separately collected sample should be submitted for Hepatitis C Virus (HCV) RNA Detection and Quantitation by Real-Time Reverse Crusher Setter-PCR (RT-PCR). Current interpretive data was last revised on 2016. HepBsAg Nonreactive Nonreactive [facility] Blood specimen (specimen) 02/12/2019 8:09 PM CDT 02/12/2019 8:50 PM CDT Narrative [facility] - 02/13/2019 11:45 AM CDT Caridad Ramey MD LAB MICROBIOLOGY - GENERAL O RDERABLES Edited Result - Final [facility] One [facility] Department [place] [address] from Last 3 Months or Most Recently Relevant to Health Maintenance [facility] HMO [facility] HMO/PPO Address: [facility] [id number] [place] [address] WE[employer] MEDICARE HMO Advance Directives For more information, please contact: [phone] Documents on File Type Date Recorded Patient Product Transfer Pumper Expl anation ADVANCE DIRECTIVE 02/12/2019 11:16 AM [...] 6:08 AM 03/16/2021 4:56 AM Care Teams Director Of Broadcast Relationship Specialty Start Date End Date Hamlet Dougherty MD PCP - General Family Medicine 11/15/18
--- OUTSIDE RECORDS SUMMARY | 2025-03-12 15:57 | XMS_ITS | Encounter Summary ---
Author Organization [facility] Address [address] [place] [address] Care Team Providers Care Travel Occupational Therapist Name Role Phone Hamlet Dougherty MD Primary Care Provider [phone] Encounter Details Date Type Department Care Team (Late st Contact Info) Description 10/24/2020 Therapy [facility] [address] [place] [address] Estrada Coffman MD [address] [facility] [address] [place] [address] Severe episode of recurrent major depressive disorder, [...] Primary documented in this encounter Care Teams Travel Occupational Therapist Relationship Specialty Start Date End Date Hamlet Dougherty MD PCP - General Family Medicine 11/15/18 documented as of this encounter
--- OUTSIDE RECORDS SUMMARY | 2025-03-12 15:57 | XMS_ITS | Data Portability ---
Author Organization [facility] Address [address] [place] [address] [place] [address] Care Team Providers Care Printed Circuit Boards Router Name Role Phone UMA MORA Primary Care Provider Assessment No assessment recorded. Plan of Treatment Reminders Order Date Submit Date Provider Last Modified By Organization Details Last Modified Time Details Appointments None recorded. Lab None recorded. Referral None recorded. Procedures None recorded. Surgeries laparoscopi c ovarian cystectomy (SURG) 2024 025 MARIANN [facility], [address], [address], 13:53:14 salpingecto my, laparoscopi c (SURG) 2024 025 [id number] [facility], [address] [place] [address], [address], 5 09:55:22 hysteroscop y, with endometrial ablation (SURG) 2024 025 [email or web address] [facility], [address] [place] [address], [address], 5 11:19:52 Imaging US, pelvis 2024 025 demetrius [place], [place], [address], 18:54:09 US, transvagina l 2024 025 demetrius [place], [place], [address], 18:54:09 Medication Orders None recorded. Patient TargetsNo targets recorded. Patient InstructionsNo instructions recorded. Reason for Referral None Reported. Results Created Date Observation Date Name Description Value Unit Range Abnormal Flag Note LastModifiedBy Organization Detail LastModifiedTime 10/07/20 24 10/07/2024 US, pelvi s No observ ation record ed. [facility] [place] [address], [place], [address], 10/07/2024 18:05:03 10/07/20 24 10/07/2024 US, trans vagin al No observ ation record ed. [address], [place], [address], 10/07/2024 18:05:12 10/07/20 24 10/07/2024 US, pelvi s No observ ation record ed. [email or web address], [place], [address], 10/07/2024 19:49:03 12/02/19 25 12/02/2024 US, pelvi s No observ ation record ed. [facility] [address], [place], [address], 12/02/2024 18:03:42 12/02/19 25 12/02/2024 US, trans vagin al No observ ation record ed. [facility] [address], [place], [address], 12/02/2024 18:03:53 12/02/19 25 12/02/2024 US, pelvi s No observ ation record ed. [address], [place], [address], 12/03/2024 15:35:15 03/12/20 25 03/12/2025 imagi ng/di agnos tic resul t No observ ation record ed. [facility] [address], [place], [address], 03/12/2025 15:54:47 Result Notes None recorded. Procedures Surgical History Date Name Laterality Status Provider Name and Address Organization Details Recorded Time 02/05/20 25 fallopian tube excision completed [facility] 02/12/2025 14:25:01 02/05/20 25 Endometrial Ablation completed [facility] 02/12/2025 14:25:10 02/05/20 25 LAPAROSCOPIC OVARIAN CYSTECTOMY (SURG) completed Karen Greenberg [facility] 02/04/2025 16:20:38 09/30/20 24 Date of Last Pap Smear completed [facility] 10/28/2024 14:35:26 06/20/20 22 Date of Last Mammogram completed [facility] 09/30/2024 14:30:21 11/20/19 19 procedure on back completed [facility] 09/30/2024 14:36:31 11/20/19 04 fallopian tube excision completed [facility] 09/30/2024 14:36:08 Imaging Results Imaging Date Name Status LastModified by Organization Details LastModified Time 10/07/2024 US, pelvis completed [email or web address] [place] [address], [place], [address], 10/07/2024 18:05:03 10/07/2024 US, transvaginal completed [email or web address], [place], [address], 10/07/2024 18:05:12 10/07/2024 US, pelvis completed [email or web address], [place], [address], 10/07/2024 19:49:03 12/02/2024 US, pelvis completed [facility] [address], [place], [address], 12/02/2024 18:03:42 12/02/2024 US, transvaginal completed [facility] [address], [place], [address], 12/02/2024 18:03:53 12/02/2024 US, pelvis completed [address], [place], [address], 12/03/2024 15:35:15 03/12/2025 imaging/diagnost ic result active [facility] [address], [place], [address], 03/12/2025 15:54:47 Procedure Notes None recorded. Medical Equipment None Reported. Allergies Allergen ID Allergen Name Allergen Category Reaction Reaction Severity Criticality Documentation Date Start Date Code Code System Note Provider Name and Address Organization Details Recorded Time 36108 dexbromph eniramine / pseudoeph edrine medicatio n rash moderate Not available 09/30/2024 62815 4 RxNorm Claudia Whitman [facility] 14:30:04 Medications Name Sig Start Date [...] TABLET BY MOUTH THREE TIMES A DAY active Not Available Not Available No t Available prednisone 10 mg tablet 10 MG ORALLY THREE TIMES A DAY 3 TABLETS A DAY FOR 5 DAYS. 09/30 completed Not Available Not Available Not Available doxycycline hyclate 100 mg capsule TAKE 2 ON DAY 1, THEN TAKE 1 EVERY DAY 09/30 completed Not Available Not Available Not Available hydrocodone 5 mg-acetamin ophen 325 mg tablet 1 - 2 TABLET ORALLY EVERY 6 HOURS NEEDED FOR PAIN active Not Available Not Available No t Available gabapentin 400 mg capsule TAKE 1 CAPSULE BY MOUTH THREE TIMES A DAY active Not Available Not Available No t Available meloxicam 7.5 mg tablet 7.5 MG ORALLY DAILY active Not Available Not Available No t [...] A DAY. TAKE WITH PLENTY OF FLUIDS 02/12 completed Not Available Not Available Not Available meloxicam submicroniz ed 10 mg capsule 09/30 completed Not Available Not Available Not Available Acid Transfer Operator (omeprazole ) 09/30 completed Not Available Not Available Not Available Gemtesa 75 mg tablet TAKE 1 TABLET BY MOUTH EVERY DAY active Not Available Not Available No t Available Vitals Date Recorded Body height Body mass index (BMI) Body weight Systolic blood pressure Diastolic blood pressure Provider Name and Address Organization Details Last Updated DateTime 10/28/2024 157.48 cm 30.7 kg/m2 00849.52 g 112 mm[Hg] 77 mm[Hg] Claudia Whitman [facility] 4 14:34:47 Date Recorded Body height Body mass index (BMI) Body weight Systolic blood pressure Diastolic blood pressure Provider Name and Address Organization Details Last Updated DateTime 12/20/2024 157.48 cm 30.5 kg/m2 37658.93 g 120 mm[Hg] 82 mm[Hg] Claudia [facility] 5 10:08:27 Date Recorded Body height Body mass index (BMI) Body weight Systolic blood pressure Diastolic blood pressure Provider Name and Address Organization Details Last Updated DateTime 02/12/2025 157.48 cm 31.3 kg/m2 79822.3 g 109 mm[Hg] 77 mm[Hg] Claudia [facility] 5 14:23:15 Social History Question Answer Notes LastModified by [...] Or The Highest Degree You Have Received? 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 [id number] Information not available 09/30/2024 Do You Use [...] N Drug/Latex Allergies/Reactions N Blood Transfusion N Dermatologic Disorders N Lung Disease N Defects or Inherited Disease N Breast Problem N Gestational Diabetes N Hematologic disorders N Anesthesia Complications N History of STI N Deep Vein Thrombosis N Polycystic ovary syndrome N Anxiety Disorder Y Autoimmune disease N Arthritis N Infertility N Polyps N Acid Reflux (GERD) N History of abnormal pap N Cancer N Stroke N Varicosities N Neurologic/Epilepsy N Endometriosis N High Cholesterol N Headaches N Fibromyalgia N Kidney Disease N Heart Problems N [...] Mammogram 06/20/2022 Flow Heavy Date of LMP 01/26/2025 N Was last menstrual period normal Y STIs/STDs N None Desired Control Method Ablation Abnormal Pap N On BCP's at Conception? N HPV Vaccine Y Duration of Flow (days) 5 Current Control Method Tubal Ligat ion Age at First Child 21 Are cycles [...] SNOMED-CT Code Diagnosis ICD10 Code Diagnosis Note [id number] Venkatesh Hannon MD [place] [address] [address] 09/30/2024 14:02:20 09/30/2024 15:02:37 Gynecologic examination 40677999 Z01.419 Annual gynecologi aide exam performed. Patient [...] a-to have pelvic ultrasound and to return [id number] [facility] [address],[place] [address] 10/07/2024 16:06:22 10/07/2024 16:43:55 Menorrhagia 344764415 N92.0 [id number] Venkatesh Hannon MD [place] [address],[place] [address] 10/28/2024 14:13:39 10/28/2024 15:25:01 Menorrhagia 858281130 N92.0 44-year-ol d female who presents for [...] 20 minutes on her care in total. [id number] [facility] [address],[place] [address] 12/02/2024 11:51:49 12/02/2024 12:36:10 Cyst of left ovary 5485575046 6212320 N83.292 N84.1 [id number] Venkatesh Hannon MD [place] [address] [address] 12/20/2024 09:57:27 12/20/2024 10:55:05 Menorrhagia 247758352 N92.0 this patient is a 44-year-ol d [...] discussed multiple complex topics. Female sterilization 608 56708 Z30.2 Cyst of left ovary 12495 94420 [id number] N83.292 N84.1 [id number] Venkatesh Hannon MD [place] [address] [address] 02/04/2025 08:33:22 02/05/2025 08:15:12 [id number] Venkatesh Hannon MD [place] [address] [address] 02/12/2025 14:11:20 02/12/2025 14:53:14 Postoperative care 833884462 Z48.89 patient presents for postop follow-up after endometria l ablation. She is recovering normally. She has Watery vaginal discharge. She denies any foul-smell ing discharge. She denies any nausea, vomiting, fever, chills. She also had salpingect jonna in recovering from that. She has no complaints . She is some abdominal tenderness . Incisions are clean dry and intact. Health Concerns Section Related Observation LastModified by Organization Detai ls LastModified Time None Recorded Concern Status LastModified by Organization Details LastModified Time None Recorded Advance Directives Directive N: Payers Encounter Date Sequence Insurance Name Policy Number Policy Martinez Covered Member ID Martinez Member ID Guarantor Name 10/28/2024 1 [employer] (MEDICARE REPLACEMENT /ADVANTAGE - PPO) Lotus Tracy [id number] Lotus Tracy 10/28/2024 1 [employer] [id number] Lotus Tracy [id number] Lotus Tracy 12/02/2024 1 [employer] (MEDICARE REPLACEMENT /ADVANTAGE - PPO) Lotus Tracy [id number] Lotus Tracy 12/20/2024 1 [employer] (MEDICARE REPLACEMENT /ADVANTAGE - PPO) Lotus Tracy [id number] Lotus Tracy 02/04/2025 1 [employer] (MEDICARE REPLACEMENT /ADVANTAGE - PPO) Lotus Tracy [id number] Lotus Tracy 02/12/2025 1 [employer] (MEDICARE REPLACEMENT /ADVANTAGE - PPO) Lotus Tracy [id number] Lotus Tracy Notes Date Note Type Note Provider Name and Address Organization Details Recorded Time 10/28/2024 text/html 44-year-old keshav clarke who presents for follow-up on menorrhagia. She [...] minutes on her care in total. Venkatesh Hannon MD [address], [place], [address], [facility] 10/28/2024 15:24:51 12/20/2024 text/html this patient [...] is risk of hemorrhage and infection. Venkatesh Hannon MD [address], [place], [address], [facility] 12/20/2024 10:53:13 02/12/2025 text/html patient presents for postop follow-up after endometrial ablation. She is recovering normally. She has Watery vaginal discharge. She denies any foul-smelling discharge. She denies any nausea, vomiting, fever, chills. She also had salpingectomy in recovering from that. She has no complaints. She is some abdominal tenderness. Incisions are clean dry and intact. Venkatesh Hannon MD [address], [place], [address], [facility] 02/12/2025 14:50:52 OBGyn Episode Ob Episode Information Episode Created Date Number of Fetuses Patient Bloodtype Patient rh Status Prepregnancy Weight lbs Domestic Partner Domestic Partner Phone Father Name Cut Tobacco Bulker Status 09/30/20 24 1 CLOSED Fetus Data First Name Last Name Admitted to NICU Weight (g) Sex Living Outcome Pediatric Complications Fetus ID Race Codes Race Delivery Type Ectopic [id number] Hiram Calculation Initial Hiram Date Initial Exam [...] Domestic Partner Domestic Partner Phone Father Name Cut Tobacco Bulker Status 09/30/20 24 1 CLOSED Fetus Data First Name Last Name Admitted to NICU Weight (g) Sex Living Outcome Pediatric Complications Fetus ID Race Codes Race Delivery Type F Full Term [id number] Vaginal Delivery Hiram Calculation Initial Hiram Date [...]
== END 2025-03-12 14:00 | disposition home or self-care (01) ==
LOC: ANHIMG 14:01
PROVIDERS: PCP Family Medicine; Visit Provider Obstetrics & Gynecology
DX: Z12.31 Encounter for screening mammogram for malignant neoplasm of breast (principal); R92.8 Other abnormal and inconclusive findings on diagnostic imaging of breast
CPT/HCPCS: 77063; 77067

== ENCOUNTER 2025-03-31 12:04 | Outpatient (CLI) | payer MEDICARE, SELFPAY ==
--- NOTE | ~2025-03-31 | MM_ITS ---
EXAMINATION: MM diagnostic mima LT w bartolo HISTORY: Left breast asymmetry TECHNIQUE: Additional 3-D tomosynthesis images of the left breast were performed and synthetic 2-D im ages were generated. CAD analysis was submitted and interpreted. COMPARISON: 03/12/2025, 12/01/2021 BREAST PARENCHYMAL COMPOSITION:Dense: The breasts are heterogeneously dense, which may obscure small masses. FINDINGS: Left subareolar asymmetry effaces with spot compression. No persistent mass lesion or disto rtion seen. No suspicious microcalcification. IMPRESSION: No mammographic evidence for malignancy. BI-RADS Category 1: Negative Reviewed, dictated and finalized at location .
--- OUTSIDE RECORDS SUMMARY | 2025-03-31 12:11 | XMS_ITS | Clinical Summary ---
Author Organization [facility] Address [address] [place] [address] Care Team Providers Care Lamp Cleaner Street Light Name Role Phone Hamlet Dougherty MD Primary Care Provider [phone] Allergies Active Allergy Reactions Criticality Noted Date [...] (01/22/2019): Added automatically from request for surgery [id number] Spinal stenosis of lumbar region 01/18/2019 Immunizations [...] Date Smoking Tobacco: Every Day Cigarettes 1 29.4 Started: 1995 Smokeless Tobacco: Never Alcohol Use [...] - PCV) 1997 Covid-19 Vaccine (3 - season) 2024, 09/27/2021 Influenza Vaccine (Season Ended) 2025 DTaP/Tdap/Td Vaccine (3 - Td or Tdap) 03/21/203312/2022, 04/01/2021 Hepatitis C Screening Completed 02/12/2019 , 02/12/2019, 02/12/2019 Procedures Procedure Name Priority Date/Time Associated Diagnosis Comments HEPATITIS PANEL, ACUTE Routine 02/12/2019 8:09 PM CDT from Last 3 Months or Most Recently Relevant to Health Maintenance Results * Hepatitis panel, acute (02/12/2019 8:09 PM CDT) Hep A IgM Nonreactive Nonreactive [facility] Comment: Interpretive [...] on 2016. Hep C Ab Nonreactive Nonreactive [facility] Comment: Interpretive Data Positive results should be confirmed by a molecular method. If positive, a second separately collected sample should be submitted for Hepatitis C Virus (HCV) RNA Detection and Quantitation by Real-Time Reverse Range Technician-PCR (RT-PCR). Current interpretive data was last revised on 2016. HepBsAg Nonreactive Nonreactive [facility] Blood specimen (specimen) 02/12/2019 8:09 PM CDT 02/12/2019 8:50 PM CDT Mahnaz SALVADOR BJ - 02/13/2019 11:45 AM CDT Caridad Ramey MD LAB MICROBIOLOGY - GENERAL O RDERABLES Edited Result - Final [facility]ADELEINE [facility] Department [place] [address] from Last 3 Months or Most Recently Relevant to Health Maintenance [facility]/POS [facility] HMO O [employer] HMO Advance Directives For more information, please contact: [phone] Documents on File Type Date Recorded Patient Web Art Director Expl anation ADVANCE DIRECTIVE 02/12/2019 11:16 AM [...] 6:08 AM 03/16/2021 4:56 AM Care Teams Lamp Cleaner Street Light Relationship Specialty Start Date End Date Hamlet Dougherty MD PCP - General Family Medicine 11/15/18
--- OUTSIDE RECORDS SUMMARY | 2025-03-31 12:11 | XMS_ITS | Patient Health Record ---
Author Organization [email or web address] Address [address] [facility] [address] [place] [address] Care Team Providers Care Research Biostatistician Name Role Phone Ladonna LEO, Hamlet Primary Care Provider Unavaila Donald Wagner Unavailable [phone] Migration, Provider Unavailable Unavailable Allergies Allergen (clinical [...] ve Results Component Value Reference Range Notes UDT Reviewed date:02/12/2025 08:57:02 PM Interpretation: Performing Lab: Notes/Report: THC p 0 - 50 ng/ml Cocaine n 0 - 300 ng/ml Amphetamine n 0 - 1000 ng/ml Buprenorphine (BUP) n 0 - 10 ng/ml Secobarbital (Bar) n 0 - 300 ng/ml Oxazepam (BZO) n 0 - 300 ng/ml 3-phqdnhcrge-0,0-zwhkhurr-9, 3-diphen ylpyrrolidine (EDDP) n 0 - 300 ng/ml Methamphetamine (MET) n 0 - 1000 ng/ml Methylenedioxymethamphetamine (MDMA) n 0 - 500 ng/ml Morphine (MOP 300/HCX6508) p 0 - 300 ng/ml Methadone (MTD) n 0 - 300 ng/ml Phencyclidine (PCP) n 0 - 25 ng/ml Nortriptyline (TCA) n 0 - 1000 ng/ml Oxycodone n 0 - 300 ng/ml CBC W/ AUTO DIFF Reviewed date:04/01/2024 12:00:00 AM Interpretation: Performing Lab: Notes/Report: CMP, SERUM OR PLASMA Reviewed date:04/01/2024 12:00:00 AM Interpretation: Performing Lab: Notes/Report: HBA1C (HEMOGLOBIN A1C), GENAO D Reviewed date:04/01/2024 12:00:00 AM Interpretation: Performing Lab: [...] date:04/01/2024 12:00:00 AM Interpretation: Performing Lab: Notes/Report: DRUG MONITOR, MARIJUANA META B, QN, URINE ([id number]) Reviewed date:02/20/2025 08:14:19 PM Interpretation: Performing Lab:ROBIN [facility]-David Courtneye1355 [facility]teM[facility] Psych[facility] HospitalDavidKapsBX[address] Delbert Stone Notes/Report: FASTING: NO Marijuana Metabolite 344 <5 ng/mL medMATCH Marijuana Metab INCONSISTENT Marijuana Comments See Pallavi funes Notes, LDT Notes DRUG MONITOR, OPIATES EXPAND ED, QN, URINE (09444) Reviewed date:02/20/2025 08:14:19 PM Interpretation: Performing Lab:ROBIN Senscient Rssr7704 [facility] Hospitalpamela mai, David CourtneyTolqCB[address] Delbert Stone, Director - [address] [address] [facility] HospitalB[facility] Exchange Celia-Ion Notes/Report: FASTING: NO Codeine >79487 <50 ng/mL medMATCH Codeine INCONSISTENT Hydrocodone 116 [...] analytical performance characteristics have been determined by [facility]. It has not been cleared or approved by the FDA. This assay has been validated pursuant to the CLIA regulations and is used for clinical purposes. medMATCH(R) enables providers to identify if drug use is consistent or inconsistent with a corresponding prescribed medication(s) list. Healthcare Providers needing Interpretation assistance, please contact us at [phone] ( ) M-F, 8am to 10pm EST PRESCRIBED DRUGS, medMATCH(R ) (72713) Reviewed date:02/20/2025 08:14:19 PM Interpretation: Performing Lab:KS, [facility]-Itszzh91837 Pina mai, [id number] Isreal Fry MD Notes/Report: FASTING: NO medMATCH Summary Prescribed Prescribed Not Prescribed Consistent Inconsistent Inconsistent Codeine Hydrocodone Marijuana Metabolite Morphine Norhydrocodone Reason For Referral No Information Medications Medication [...] for 90 days Active Ergocalciferol 1.25 MG (43910 UT) Oral 02/28/2024 Active Gabapentin 400 MG 1 capsule 3 times a day for 30 days Active Pantoprazole Sodium 40 MG Oral 02/28/2024 Active Immunizations Vaccine Route Administration Date Status Comme nts Pfizer Biontech Covid-19 Vac cine 2nd dose Unknown 09/27/2021 Administered Pfizer Biontech Covid-19 Vac cine 2nd dose Unknown 10/18/2021 Administered Tdap Unknown 04/01/2021 Administered Social History Tobacco Use: Social History [...] Severe recurrent major depression without psychotic features (33206502) Major depressive disorder, recurrent 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.2) 02/28/20 Active confirmed Problem Generalized anxiety disorder (42118017) Generalized anxiety disorder (F41.1) 02/28/20 Active confirmed Problem Primary insomnia (6733469) Primary insomnia (F51.01) Active confirmed Problem Poor concentration (44662464) Poor concentration (R41.840) Active confirmed Vital Signs Heart Rate 94 /min 01/20/2025 Height-cm 157.48 cm 01/20/2025 Blood pressure diastolic 74 mm Hg 01/20/2025 Weight-kg 75.3 kg 01/20/2025 Height 62.00 in 01/20/2025 Blood pressure systolic 107 mm Hg 01/20/2025 Weight 166.0 lbs 01/20/2025 BMI 30.36 kg/m2 01/20/2025 Encounters Encounter Location Date Provider Diagnosis [facility] [address] [facility] [address] [facility] [address] [place] [address] 05/27/2024 Donald Yamini Major depressive disorder, recurrent severe without psychotic features F33.2 ; Generalized anxiety disorder F41.1 and Primary insomnia F51.01 [facility] [address] [facility] [address] [facility] [address] [place] [address] 08/26/2024 Donald Yamini Major depressive disorder, recurrent severe without psychotic features F33.2 ; Generalized anxiety disorder F41.1 and Primary insomnia F51.[address] [facility] [address] [facility] [address] [facility] [address] [place] [address] 12/16/[address] [facility], [facility] [address] [place] [address] 01/13/[address] [facility], [facility] [address] [place] [address] 01/20/2025 Donald Yamini Major depressive disorder, recurrent severe without psychotic features F33.2 ; Generalized anxiety disorder F41.1 ; Primary insomnia F51.01 and Poor concentration R41.[address] [facility], [facility] [address] [place] [address] 02/10/2025 Donaldgrisel Kc Lack of concentratio n R41.[address] [facility], [facility] [address] [place] [address] 03/03/[address] [facility], [facility] [address] [place] [address] 04/02/2024 Provider Migration [facility], [facility] [address] [place] [address] 04/06/2024 Provider Migration [facility], [facility] [address] [place] [address] 04/07/2024 Provider Migration [facility], [facility] [address] [place] [address] 04/23/[address] [facility], [facility] [address] [place] [address] 07/09/[address] [facility], [facility] [address] [place] [address] 07/09/2024 Donald Yamini Major depressive disorder, recurrent severe without psychotic features F33.[address] [facility], [facility] [address] [place] [address] 07/29/2024 Donald Yamini Generalized anxiety disorder F41.[address] [facility], [facility] [address] [place] [address] 12/18/2024 Donald Yamini [facility], [facility] [address] [place] [address] 01/20/2025 [facility] [address] [place] [address] 01/21/2025 Donald Kc [facility] [address] [place] [address] 03/28/2025 Donald Yamini [facility] [address] [place] [address] 07/23/2024 Donald Kc Assessments Encounter Date Diagnosis [...] in with her daughter, both working at [email or web address]. Daughter's fiance helps with childcare. Upcoming Plans - Assessment: Patient has plans for Thanksgiving with parents visiting and [place] Rachel celebrations with family. 01/20/2025 Major depressive [...] in with her daughter, both working at [email or web address]. Daughter's fiance helps with childcare. Upcoming Plans - Assessment: Patient has plans for Thanksgiving with parents visiting and [place] Eve celebrations with family. 08/26/2024 Primary insomnia (ICD-10 [...] in with her daughter, both working at [email or web address]. Daughter's fiance helps with childcare. Upcoming Plans - Assessment: Patient has plans for Thanksgiving with parents visiting and Sushant Rachel celebrations with family. 01/20/2025 Primary insomnia [...] monitor mental health symptoms. Plan Of Treatment Next Appt Details Provider Name:Donald Kc , 04/07/2025 01:15:00 PM, [address], [place], [address], Insurance Providers Payer Name Payer Address Payer Phone Subscriber Number Group Number Insured Name Patient Relationship to Insured Coverage Start Date Coverage End Date [employer] Medicare Replacemen t/Advantag e - Ppo [address] [address] [place] [phone] [id number] STORM MELARA Self - patient is the insured Medical (General) History Medical History History ICD Code Problems: Cocaine user Generalized anxiety disorder Primary insomnia Prolapsed lumbar intervertebral disc Recurrent major depressive episodes Severe recurrent major depression withou t psychotic features Spinal stenosis of lumbar region , Surgical History Surgery Date(Month/Year) Procedure on back ([id number]) 11/20/2018 Other 01/18/2019 Removal of ectopic fetus (14947256) 02/2006
--- OUTSIDE RECORDS SUMMARY | 2025-03-31 12:11 | XMS_ITS | Encounter Summary ---
Author Organization [facility] Address [address] [place] [address] Care Team Providers Care Entry Table Operator Name Role Phone Hamlet Dougherty MD Primary Care Provider [phone] Encounter Details Date Type Department Care Team (Late st Contact Info) Description 10/24/2020 Therapy [facility] [address] [place] [address] Estrada Coffman MD [address] [facility] [address] [place] [address] Severe episode of recurrent major depressive disorder, [...] Primary documented in this encounter Care Teams Entry Table Operator Relationship Specialty Start Date End Date Hamlet Dougherty MD PCP - General Family Medicine 11/15/18 documented as of this encounter
--- OUTSIDE RECORDS SUMMARY | 2025-03-31 12:11 | XMS_ITS | Referral Summary ---
Author Organization [facility] Address [address] [place] [address] Care Team Providers Care Concession Worker Name Role Phone Hamlet Dougherty MD Primary Care Provider [phone] Allergies Active Allergy Reactions Criticality Noted Date [...] (01/22/2019): Added automatically from request for surgery [id number] Spinal stenosis of lumbar region 01/18/2019 Immunizations [...] CDT) Hep A IgM Nonreactive Nonreactive [facility] Comment: Interpretive Data If test is reported as GRAYZONE, new sample should be drawn in two weeks for testing. Current interpretive data was last revised on 2016. Hep B core IgM Nonreactive Nonreactive [facility] Comment: Interpretive Data If test is reported as GRAYZONE, new sample should be drawn for testing. Current interpretive data was last revised on 2016. Hep C Ab Nonreactive Nonreactive [facility] Comment: Interpretive Data Positive results should be confirmed by a molecular method. If positive, a second separately collected sample should be submitted for Hepatitis C Virus (HCV) RNA Detection and Quantitation by Real-Time Reverse Box Maker Wood-PCR (RT-PCR). Current interpretive data was last revised on 2016. HepBsAg Nonreactive Nonreactive [facility] Blood specimen (specimen) 02/12/2019 8:09 PM CDT 02/12/2019 8:50 PM CDT N[facility]ative [facility] - 02/13/2019 11:45 AM CDT Caridad Ramey MD LAB MICROBIOLOGY - GENERAL O RDERABLES Edited Result - Final [facility] Department [place] [address] from Last 3 Months or Most Recently Relevant to Health Maintenance [facility] [employer] MEDICARE HMO Advance Directives For more information, please contact: [phone] Documents on File Type Date Recorded Patient Loop Cutter Expl anation ADVANCE DIRECTIVE 02/12/2019 11:16 AM [...] 6:08 AM 03/16/2021 4:56 AM Care Teams Concession Worker Relationship Specialty Start Date End Date Hamlet Dougherty MD PCP - General Family Medicine 11/15/18
== END 2025-03-31 12:05 | disposition home or self-care (01) ==
LOC: ANHIMG 12:08
PROVIDERS: PCP Family Medicine; Visit Provider Obstetrics & Gynecology
DX: R92.8 Other abnormal and inconclusive findings on diagnostic imaging of breast (principal)
CPT/HCPCS: 77061; 77065; G0279